=== PATIENT | male | born 1960 | race Caucasian/White ===

== ENCOUNTER → 2019-12-06 | Outpatient (CLI) | payer MEDICARE ==
[~2019-12-06] MED LIST: DUEXIS 800-26.1 EACH PO; FLONASE; GABAPENTIN100 MG PO; METOPROLOL SUCC50 MG PO; NAPROSYN500 MG PO; NORCO 10-325 T1 EACH
--- NOTE | 2019-12-10 10:09 | Diagnostic Imaging Report ---
MRI of the left foot without contrast. History: Osteomyelitis. Nonhealing laceration at the hindfoot. Foot pain. Decreased range of motion. History of prior surgery. Technique: Multiplanar multisequence MRI of the left hindfoot without contrast Comparison: None Findings: Abnormal skin thickening with laceration and artifact at the inferior medial heel at the level of the posterior calcaneus as seen on sagittal image 12. No adjacent well-formed drainable fluid collection/abscess is seen. There is a moderate amount of bone marrow edema in the posterior calcaneus worrisome for osteomyelitis. Metallic artifact from prior ankle surgery obscures fine detail. No acute fracture, dislocation or evidence of avascular necrosis. Scattered degenerative change. Diffuse muscle atrophy. No ligamentous or tendon tear is seen. The visualized neurovascular bundles are intact. Impression: Abnormal skin thickening with laceration and artifact at the inferior medial heel at the level of the posterior calcaneus as seen on sagittal image 12. No adjacent well-formed drainable fluid collection/abscess is seen. There is a moderate amount of bone marrow edema in the posterior calcaneus worrisome for osteomyelitis. Signed by: Dr. Herson Kwan M.D. on 12/10/2019 10:05 AM
== END ==
LOC: MRI 14:10
PROVIDERS: ATTEND Podiatrist Foot & Ankle Surgery
DX: M86.572 Other chronic hematogenous osteomyelitis, left ankle and foot (principal)

== ENCOUNTER → 2020-03-03 | Outpatient (CLI) | payer MEDICARE ==
[2020-03-03 14:13] LABS: HEMOGLOBIN 12.9 g/dL (14.0-18.0)
[2020-03-03 14:18] LABS: INR 0.87; PROTHROMBIN TIME 12.2 seconds (11.9-14.5)
[2020-03-03 14:19] LABS: PARTIAL THROMBOPLASTIN TIME 28.6 seconds (23.8-35.5)
[2020-03-03 14:24] LABS: CREATININE, SERUM 1.31 mg/dL (0.72-1.25)
--- NOTE | 2020-03-03 15:06 | Diagnostic Imaging Report ---
EXAMINATION: CHEST XRAY LINE PLACEMENT INDICATION: Line placement COMPARISON: None FINDINGS: LINES/TUBES:Left PICC line terminates at the superior cavoatrial junction. LUNGS:The lungs are well-inflated. No focal consolidation or pulmonary edema. PLEURA:No pleural effusion or pneumothorax. MEDIASTINUM:The cardiomediastinal silhouette appears normal in size and shape. BONES/SOFT TISSUES:No acute osseous injury. ABDOMEN:No free air under the diaphragm. IMPRESSION: Left PICC line terminates at the superior cavoatrial junction. No focal pneumonia or pulmonary edema. Signed by: Hazel Vasquez MD on 03/03/2020 3:03 PM
== END ==
LOC: DX 13:33
PROVIDERS: ATTEND Podiatrist Foot & Ankle Surgery
DX: M86.8X7 Other osteomyelitis, ankle and foot (principal); A49.02 Methicillin resistant Staphylococcus aureus infection, unspecified site
CPT/HCPCS: 36415; 36569; 71045; 82565; 84520; 85014; 85049; 85610; 85730

== ENCOUNTER → 2020-03-16 | Outpatient (CLI) | payer MEDICARE ==
--- NOTE | 2020-03-16 15:58 | Diagnostic Imaging Report ---
TECHNIQUE: Frontal view of the chest. INDICATION: ^[id number] ^[id number] ^CHECK PICC PLACEMENT COMPARISON: None DISCUSSION: Limited evaluation due to portable technique. Lines and hardware: Right PICC is noted with tip projecting at the cavoatrial junction. Heart and mediastinum: Stable. Lungs and pleura: No focal airspace consolidation. No pleural effusion. No pneumothorax. Soft tissues and bones: No acute abnormality. IMPRESSION: Right PICC noted with tip projecting at the cavoatrial junction. Negative for pneumothorax. Signed by: César Vargas MD on 03/16/2020 3:55 PM
--- NOTE | 2020-03-17 13:13 | NUR ---
attempted to Followed up with pt via telephone. The call went to voice mail, I left a generic message for the pt.
== END ==
LOC: DX 13:16
PROVIDERS: ATTEND Podiatrist Foot & Ankle Surgery
DX: M86.8X7 Other osteomyelitis, ankle and foot (principal)
CPT/HCPCS: 36569; 71045

== ENCOUNTER → 2020-04-07 | Outpatient (CLI) | payer MEDICARE ==
[2020-04-07 12:41] LABS: HEMOGLOBIN 13.4 g/dL (14.0-18.0)
[2020-04-07 12:45] LABS: INR 0.96; PARTIAL THROMBOPLASTIN TIME 29.3 seconds (23.8-35.5); PROTHROMBIN TIME 13.3 seconds (11.9-14.5)
[2020-04-07 12:51] LABS: CREATININE, SERUM 1.29 mg/dL (0.72-1.25)
--- NOTE | 2020-04-07 14:01 | Diagnostic Imaging Report ---
EXAMINATION: CHEST XRAY LINE PLACEMENT INDICATION: Line placement COMPARISON: Chest radiograph 03/03/2020 FINDINGS: LINES/TUBES:Left PICC line terminates near the superior cavoatrial junction. LUNGS:The lungs are well-inflated. No focal consolidation or pulmonary edema. PLEURA:No pleural effusion or pneumothorax. MEDIASTINUM:The cardiomediastinal silhouette appears normal in size and shape. BONES/SOFT TISSUES:No acute osseous injury. ABDOMEN:No free air under the diaphragm. IMPRESSION: Left PICC line terminates near the superior cavoatrial junction. Signed by: Hazel Vasquez MD on 04/07/2020 1:58 PM
== END ==
LOC: DX 12:12
PROVIDERS: ATTEND Podiatrist Foot & Ankle Surgery
DX: M86.9 Osteomyelitis, unspecified (principal)
CPT/HCPCS: 36415; 36569; 71045; 82565; 84520; 85014; 85049; 85610; 85730

== ENCOUNTER 2020-04-21 16:52 | Inpatient (IN) | payer MEDICARE, OTHER ==
[~2020-04-21] VITALS: Ht 172.7 cm; Wt 67.1 kg
[2020-04-21 18:00] LABS: BILIRUBIN,URINE SMALL (NEGATIVE); CLARITY,URINE SL CLOUDY (CLEAR); COLOR,URINE AMBER (YELLOW); KETONES,URINE NEGATIVE (NEGATIVE); LEUKOCYTE ESTERASE ,URINE NEGATIVE (NEGATIVE); NITRITE,URINE NEGATIVE (NEGATIVE); PROTEIN,URINE DIPSTICK 1+ (NEGATIVE); URINE UROBILINOGEN 0.2 mg/dL (0.2 - 1)
[2020-04-21 18:01] LABS: BASOPHILS # (AUTO) 0.1 (0.0-0.1); BASOPHILS % 0.7 % (0.0-1.0); EOSINOPHILS # (AUTO) 0.5 (0.0-0.4); EOSINOPHILS % 3.5 % (0.0-6.0); HEMATOCRIT 33.2 % (38.2-49.6); HEMOGLOBIN 11.6 g/dL (14.0-18.0); LYMPHOCYTES % 7.7 % (18.0-39.1); MEAN CORPUSCULAR HEMOGLOBIN 28.7 pg (28-32); MEAN CORPUSCULAR HGB CONC 34.9 g/dL (31-35); MEAN CORPUSCULAR VOLUME 82.2 fL (81-99); MONOCYTES # (AUTO) 1.4 (0.2-0.8); MONOCYTES % 10.6 % (4.4-11.3); NEUTROPHILS # (AUTO) 10.3 (2.1-6.9); NEUTROPHILS % 76.8 % (38.7-80.0); PLATELET COUNT 326 x10e3/uL (140-360); RED BLOOD COUNT 4.04 x10e6/uL (4.3-5.7); RED CELL DISTRIBUTION WIDTH 13.1 % (11.7-14.4)
[2020-04-21 18:10] LABS: AMORPHOUS SEDIMENT,URINE MODERATE (FEW); BACTERIA,URINE MODERATE /HPF; EPITHELIAL CELLS,URINE FEW /LPF
[2020-04-21 18:13] LABS: ALBUMIN 2.7 g/dL (3.5-5.0); ALBUMIN/GLOBULIN RATIO 0.6 (0.8-2.0); ANION GAP 17.8 mmol/L (8-16); CALCIUM 9.4 mg/dL (8.4-10.2); CREATININE, SERUM 2.79 mg/dL (0.72-1.25); POTASSIUM 3.8 mmol/L (3.5-5.1)
[2020-04-21] MEDS ORDERED: SODIUM CHLORIDE 0.9% 1000ML 1,000 ML IV STA (18:18)
[2020-04-21] MEDS ORDERED: PIPER-TAZ 3.375 GM 50 ML IV STA (18:18)
[2020-04-21] MEDS ORDERED: VANCOMYCIN HCL5 GM (18:38)
[2020-04-21] MEDS ORDERED: ACETAMINOPHEN-1 EAC4 PO (18:38)
[2020-04-21] MEDS ORDERED: DIAZEPAM10 MG PO (18:38)
[2020-04-21 23:30] VITALS: BP 148/99
[2020-04-22] VITALS (9 sets, daily range): BP systolic 114–147; BP diastolic 77–88
[2020-04-22] MEDS ORDERED: MORPHINE SULFATE INJ 4 MG/ML INJ 1ML IV PRN
[2020-04-22] MEDS: SODIUM CHLORIDE 0.9% 1000ML 1,000 ML IV SCH ×5 (00:19→22:20)
[2020-04-22] MEDS ORDERED: MORPHINE SULFATE INJ 4 MG/ML INJ 1ML ONE (03:13)
[2020-04-22] MEDS: MORPHINE SULFATE INJ 4 MG/ML INJ 1ML IV PRN (03:15)
[2020-04-22 06:22] LABS: CREATINE KINASE 50 IU/L (30-200)
[2020-04-22] MEDS ORDERED: ONDANSETRON HCL INJ 2MG/ML 2ML 2 MG/ML VIAL IV PRN (07:00)
[2020-04-22] MEDS ORDERED: DOCUSATE SODIUM 100 MG CAP PO PRN (07:00)
[2020-04-22] MEDS ORDERED: ZOLPIDEM TARTRATE 5 MG TAB PO PRN (07:00)
[2020-04-22] MEDS: METOPROLOL SUCCINATE 50 MG TAB XL PO SCH ×2 (08:58→17:27)
[2020-04-22] MEDS ORDERED: NON-FORMULARY MEDICATION (Acetaminophen With Codeine (Acetaminophen-Cod #4 Tablet) 1 TAB) PO SCH (09:00)
[2020-04-22] MEDS ORDERED: SODIUM CHLORIDE 0.9% 1000ML 1,000 ML ONE (09:07)
[2020-04-22] MEDS ORDERED: CEFEPIME HCL 1 GM VIAL IV SCH (13:00)
[2020-04-22] MEDS ORDERED: CEFEPIME 1GM/NS 0.9% 50 ML 50 ML IV SCH (13:00)
[2020-04-22] MEDS ORDERED: CLINDAMYCIN 300MG 50 ML IV SCH (14:00)
[2020-04-22] MEDS: ACETAMINOPHEN 325 MG TAB PO PRN (15:35)
[2020-04-22] MEDS: ACETAMINOPHEN/CODEINE 300MG - 30MG TAB PO SCH (17:10)
[2020-04-22] MEDS: DIAZEPAM 5 MG TAB PO SCH (20:09)
[2020-04-22] MEDS ORDERED: DIAZEPAM PO SCH (21:00)
[2020-04-23] VITALS (7 sets, daily range): BP systolic 109–129; BP diastolic 68–80
[2020-04-23] MEDS: SODIUM CHLORIDE 0.9% 1000ML 1,000 ML IV SCH ×4 (03:45→21:34)
[2020-04-23] MEDS: MORPHINE SULFATE INJ 4 MG/ML INJ 1ML IV PRN (04:09)
[2020-04-23 08:35] LABS: BASOPHILS # (AUTO) 0.2 (0.0-0.1); BASOPHILS % 1.2 % (0.0-1.0); EOSINOPHILS # (AUTO) 1.3 (0.0-0.4); EOSINOPHILS % 10.9 % (0.0-6.0); HEMATOCRIT 32.7 % (38.2-49.6); LYMPHOCYTES # (AUTO) 1.5 (1.0-3.2); LYMPHOCYTES % 11.9 % (18.0-39.1); MEAN CORPUSCULAR HEMOGLOBIN 28.2 pg (28-32); MEAN CORPUSCULAR HGB CONC 33.6 g/dL (31-35); MEAN CORPUSCULAR VOLUME 83.8 fL (81-99); MONOCYTES # (AUTO) 1.2 (0.2-0.8); MONOCYTES % 9.7 % (4.4-11.3); NEUTROPHILS # (AUTO) 8.1 (2.1-6.9); NEUTROPHILS % 65.5 % (38.7-80.0); PLATELET COUNT 364 x10e3/uL (140-360); RED CELL DISTRIBUTION WIDTH 13.3 % (11.7-14.4)
[2020-04-23] MEDS: ACETAMINOPHEN/CODEINE 300MG - 30MG TAB PO SCH ×2 (08:57→17:00)
[2020-04-23] MEDS: METOPROLOL SUCCINATE 50 MG TAB XL PO SCH ×2 (08:57→17:00)
[2020-04-23 09:07] LABS: ANION GAP 13.6 mmol/L (8-16); CALCIUM 8.6 mg/dL (8.4-10.2); CREATININE, SERUM 2.61 mg/dL (0.72-1.25); POTASSIUM 3.6 mmol/L (3.5-5.1)
[2020-04-23] MEDS: DIAZEPAM 5 MG TAB PO SCH (21:34)
[2020-04-24] VITALS (8 sets, daily range): BP systolic 106–149; BP diastolic 70–85
[2020-04-24] MEDS: ACETAMINOPHEN 325 MG TAB PO PRN (03:44)
[2020-04-24] MEDS: SODIUM CHLORIDE 0.9% 1000ML 1,000 ML IV SCH (05:00)
[2020-04-24] MEDS: ACETAMINOPHEN/CODEINE 300MG - 30MG TAB PO SCH ×2 (09:00→17:00)
[2020-04-24] MEDS: METOPROLOL SUCCINATE 50 MG TAB XL PO SCH ×2 (09:00→17:17)
[2020-04-24] MEDS ORDERED: SODIUM BICARBONATE 8.4% 50 ML in SODIUM CHLORIDE 0.45% 1,000 ML IV ONE (09:15)
[2020-04-24] MEDS ORDERED: ONDANSETRON HCL 4 MG ORAL DISINTEGRATING TAB PO PRN (11:00)
[2020-04-24] MEDS ORDERED: CEFTRIAXONE SOD 1 GM/NS 50 ML 50 ML IV SCH (11:45)
[2020-04-24] MEDS: COLLAGENASE 5 GM TUBE TOP SCH (12:38)
[2020-04-24] MEDS ORDERED: CEFEPIME HCL 1 GM VIAL IV SCH (18:15)
[2020-04-24] MEDS: DIAZEPAM 5 MG TAB PO SCH ×2 (20:32→22:36)
[2020-04-24] MEDS: CEFEPIME 1GM/NS 0.9% 50 ML 50 ML IV SCH (20:32)
[2020-04-25] VITALS (7 sets, daily range): BP systolic 108–144; BP diastolic 66–88
[2020-04-25] MEDS: MORPHINE SULFATE INJ 4 MG/ML INJ 1ML IV PRN (02:09)
[2020-04-25] MEDS ORDERED: SODIUM BICARBONATE 8.4% 50 ML VIAL IV STA (05:15)
[2020-04-25] MEDS ORDERED: SODIUM BICARBONATE 8.4% INJ 50 ML SYR IV STA (05:24)
[2020-04-25] MEDS: SODIUM CHLORIDE 0.45% 1,000 ML IV SCH ×2 (05:43→21:15)
[2020-04-25 06:38] LABS: BASOPHILS # (AUTO) 0.1 (0.0-0.1); BASOPHILS % 0.9 % (0.0-1.0); EOSINOPHILS # (AUTO) 1.1 (0.0-0.4); EOSINOPHILS % 9.5 % (0.0-6.0); HEMATOCRIT 31.3 % (38.2-49.6); HEMOGLOBIN 10.4 g/dL (14.0-18.0); LYMPHOCYTES # (AUTO) 1.3 (1.0-3.2); LYMPHOCYTES % 10.9 % (18.0-39.1); MEAN CORPUSCULAR HEMOGLOBIN 27.7 pg (28-32); MEAN CORPUSCULAR HGB CONC 33.2 g/dL (31-35); MEAN CORPUSCULAR VOLUME 83.2 fL (81-99); MONOCYTES # (AUTO) 0.9 (0.2-0.8); MONOCYTES % 7.8 % (4.4-11.3); NEUTROPHILS # (AUTO) 8.2 (2.1-6.9); NEUTROPHILS % 70.2 % (38.7-80.0); PLATELET COUNT 382 x10e3/uL (140-360); RED BLOOD COUNT 3.76 x10e6/uL (4.3-5.7); RED CELL DISTRIBUTION WIDTH 13.8 % (11.7-14.4)
[2020-04-25 07:01] LABS: ANION GAP 14.9 mmol/L (8-16); CALCIUM 8.5 mg/dL (8.4-10.2); CREATININE, SERUM 2.26 mg/dL (0.72-1.25); POTASSIUM 3.9 mmol/L (3.5-5.1)
[2020-04-25] MEDS: METOPROLOL SUCCINATE 50 MG TAB XL PO SCH ×2 (09:13→17:11)
[2020-04-25] MEDS: ACETAMINOPHEN/CODEINE 300MG - 30MG TAB PO SCH ×2 (09:15→17:00)
[2020-04-25] MEDS: COLLAGENASE 5 GM TUBE TOP SCH (09:15)
[2020-04-25] MEDS: CEFEPIME 1GM/NS 0.9% 50 ML 50 ML IV SCH (18:05)
[2020-04-25] MEDS ORDERED: SODIUM CHLORIDE 0.45% 1,000 ML ONE (20:37)
[2020-04-25] MEDS ORDERED: SODIUM BICARBONATE 8.4% SYRING 50 ML ONE (20:37)
[2020-04-25] MEDS: DIAZEPAM 5 MG TAB PO SCH (21:00)
[2020-04-25] MEDS: LACTULOSE SYRUP 20 GM/30 ML UDC PO PRN (21:15)
[2020-04-26] VITALS (8 sets, daily range): BP systolic 116–139; BP diastolic 70–98
[2020-04-26] MEDS: METOPROLOL SUCCINATE 50 MG TAB XL PO SCH ×2 (09:04→17:05)
[2020-04-26] MEDS: ACETAMINOPHEN/CODEINE 300MG - 30MG TAB PO SCH ×2 (09:04→17:06)
[2020-04-26] MEDS: MORPHINE SULFATE INJ 4 MG/ML INJ 1ML IV PRN ×2 (11:28→19:22)
[2020-04-26] MEDS: COLLAGENASE 5 GM TUBE TOP SCH (11:28)
[2020-04-26 12:56] LABS: BASOPHILS # (AUTO) 0.1 (0.0-0.1); BASOPHILS % 0.7 % (0.0-1.0); EOSINOPHILS # (AUTO) 0.7 (0.0-0.4); EOSINOPHILS % 7.7 % (0.0-6.0); HEMATOCRIT 29.2 % (38.2-49.6); HEMOGLOBIN 9.6 g/dL (14.0-18.0); LYMPHOCYTES # (AUTO) 1.2 (1.0-3.2); LYMPHOCYTES % 12.5 % (18.0-39.1); MEAN CORPUSCULAR HEMOGLOBIN 27.4 pg (28-32); MEAN CORPUSCULAR HGB CONC 32.9 g/dL (31-35); MEAN CORPUSCULAR VOLUME 83.2 fL (81-99); MONOCYTES # (AUTO) 0.8 (0.2-0.8); MONOCYTES % 8.9 % (4.4-11.3); NEUTROPHILS # (AUTO) 6.5 (2.1-6.9); NEUTROPHILS % 69.3 % (38.7-80.0); PLATELET COUNT 343 x10e3/uL (140-360); RED BLOOD COUNT 3.51 x10e6/uL (4.3-5.7); RED CELL DISTRIBUTION WIDTH 13.6 % (11.7-14.4)
[2020-04-26 13:11] LABS: ANION GAP 13.6 mmol/L (8-16); CALCIUM 8.3 mg/dL (8.4-10.2); CREATININE, SERUM 2.07 mg/dL (0.72-1.25); POTASSIUM 3.6 mmol/L (3.5-5.1)
[2020-04-26] MEDS: SODIUM BICARBONATE 8.4% 50 ML in SODIUM CHLORIDE 0.45% 1,000 ML IV SCH (16:00)
[2020-04-26] MEDS: CEFEPIME 1GM/NS 0.9% 50 ML 50 ML IV SCH (18:11)
[2020-04-26] MEDS: DIAZEPAM 5 MG TAB PO SCH (21:09)
[2020-04-26] MEDS: GABAPENTIN 100 MG CAP PO SCH (21:09)
[2020-04-26] MEDS: LACTULOSE SYRUP 20 GM/30 ML UDC PO PRN (21:15)
[2020-04-27 02:27] VITALS: BP 118/75
[2020-04-27] MEDS: GABAPENTIN 100 MG CAP PO SCH ×2 (05:35→13:06)
[2020-04-27 05:52] VITALS: BP 137/86
[2020-04-27 07:05] LABS: BASOPHILS # (AUTO) 0.1 (0.0-0.1); BASOPHILS % 0.9 % (0.0-1.0); EOSINOPHILS # (AUTO) 0.9 (0.0-0.4); HEMATOCRIT 31.9 % (38.2-49.6); HEMOGLOBIN 10.3 g/dL (14.0-18.0); LYMPHOCYTES # (AUTO) 1.2 (1.0-3.2); LYMPHOCYTES % 12.2 % (18.0-39.1); MEAN CORPUSCULAR HGB CONC 32.3 g/dL (31-35); MEAN CORPUSCULAR VOLUME 83.7 fL (81-99); MONOCYTES # (AUTO) 0.7 (0.2-0.8); MONOCYTES % 7.9 % (4.4-11.3); NEUTROPHILS # (AUTO) 6.4 (2.1-6.9); NEUTROPHILS % 67.9 % (38.7-80.0); PLATELET COUNT 379 x10e3/uL (140-360); RED BLOOD COUNT 3.81 x10e6/uL (4.3-5.7); RED CELL DISTRIBUTION WIDTH 13.6 % (11.7-14.4)
[2020-04-27 07:37] LABS: ANION GAP 13.1 mmol/L (8-16); CALCIUM 8.9 mg/dL (8.4-10.2); CREATININE, SERUM 2.04 mg/dL (0.72-1.25); POTASSIUM 4.1 mmol/L (3.5-5.1)
[2020-04-27 08:00] VITALS: BP 138/87
[2020-04-27] MEDS: ACETAMINOPHEN/CODEINE 300MG - 30MG TAB PO SCH ×2 (09:17→16:36)
[2020-04-27] MEDS: METOPROLOL SUCCINATE 50 MG TAB XL PO SCH ×2 (09:17→16:36)
[2020-04-27] MEDS: COLLAGENASE 5 GM TUBE TOP SCH (11:08)
[2020-04-27 12:00] VITALS: BP 115/74
[2020-04-27] MEDS: SODIUM BICARBONATE 8.4% 50 ML in SODIUM CHLORIDE 0.45% 1,000 ML IV SCH (13:06)
[2020-04-27 16:00] VITALS: BP 135/86
[2020-04-27] MEDS: CEFEPIME 1GM/NS 0.9% 50 ML 50 ML IV SCH (17:15)
== END 2020-04-27 19:23 | DRG 315 ==
LOC: ER 17:42 → ERHOLD 22:54 → MED/SURG3 22:58
PROVIDERS: ADMIT Internal Medicine; ATTEND Internal Medicine
DX: T80.211A Bloodstream infection due to central venous catheter, initial encounter (principal); M86.672 Other chronic osteomyelitis, left ankle and foot; N17.9 Acute kidney failure, unspecified; N39.0 Urinary tract infection, site not specified; E87.2 Acidosis; R64 Cachexia; L97.424 Non-pressure chronic ulcer of left heel and midfoot with necrosis of bone; E86.0 Dehydration; Z68.22 Body mass index [BMI] 22.0-22.9, adult; B96.5 Pseudomonas (aeruginosa) (mallei) (pseudomallei) as the cause of diseases classified elsewhere; F79 Unspecified intellectual disabilities; I12.9 Hypertensive chronic kidney disease with stage 1 through stage 4 chronic kidney disease, or unspecified chronic kidney disease; N18.9 Chronic kidney disease, unspecified; Z20.828 Contact with and (suspected) exposure to other viral communicable diseases
CPT/HCPCS: 36415; 70450; 71046; 80048; 80053; 80202; 81001; 82140; 82550; 82553; 83605; 83880; 84484; 85025; 85651; 86140; 87040; 87071; 87086; 87186; 87205; 93005; 99251; 99284; J0692; J0696; J2270; J2543; J7030; Q0162; U0002

== ENCOUNTER 2020-06-02 11:47 | Emergency (ER) | payer MEDICARE, OTHER ==
[~2020-06-02] VITALS: Ht 172.7 cm; Wt 67.1 kg
[~2020-06-02 11:47] MED LIST changes: +ACETAMINOPHEN-1 EAC4 PO; +DIAZEPAM10 MG PO; +VANCOMYCIN HCL5 GM
--- OUTSIDE RECORDS SUMMARY | 2020-06-02 12:31 | XMS REPORT | Continuity of Care Document ---
Author Author [facility] t Organization [facility] Address [address] [place] [address] Phone Unavailable Care Team Providers Care Software Testing Specialist Name Role Phone DO JATIN CALVILLO PCP FERCHO BANEGAS Attphys Unavailable Leida ARELLANO Attphys Unavailable LESTER CAREY D.O. Attphys Unavailable MELANIE HERNANDEZ M.D. Attphys Unavailable JAMES OLIVEIRA M.D. Attphys Unavailable JESSY MONTALVO M.D. Attphys Unavailable JOEL FERRARI NP Attphys Unavailable FERCHO BANEGAS Admphys Unavailable Payers Payer Name Policy Type Policy Number Effective Date Expiration Date Tito Manriquez [id number] 2016 00:00:00 [facility] Problems Condition Name Condition Details Condition Category Status Onset Date Resolution Date Last Treatment Date Treating Clinician Comments Source Plantar fasciitis Plantar fasciitis Problem HL7.CCDAR2 Active [facility] Neck pain, acute Neck pain, acute Problem HL7.CCDAR2 Active [facility] Unintentional weight loss Unintentional weight loss Problem HL7.CCDAR [address] [facility] Insomnia Insomnia Problem HL7.CCDAR2 Active [facility] Limitation due to disability Limitation due to disability Proble m HL7.CCDAR2 Active [facility] Chronic gastroesophageal reflux disease Chronic gastroesopha geal reflux disease Problem HL7.CCDAR2 [facility] Erectile dysfunction Erectile dysfunction Problem HL7.CCDAR2 Active [facility] Malaise and fatigue Malaise and fatigue Problem HL7.CCDAR2 Active [facility] Allergic rhinitis Allergic rhinitis Problem HL7.CCDAR2 Active [facility] Eye pain, bilateral Eye pain, bilateral Problem HL7.CCDAR2 Active [facility] Low back pain Low back pain Problem HL7.CCDAR2 Active [facility] Essential (primary) hypertension Essential (primary) hyperte nsion Problem HL7.CCDAR2 Active [facility] Hyperlipidemia Hyperlipidemia Problem HL7.CCDAR2 Active [facility] Arthritis Arthritis Problem HL7.CCDAR2 Active [facility] Chronic pain syndrome Chronic pain syndrome Problem HL7.CCDAR2 Active [facility] ED (erectile dysfunction) of non-organic origin ED (er ectile dysfunction) of non-organic origin Problem HL7.CCDAR2 Active [facility] Chronic constipation Chronic constipation Problem HL7.CCDAR2 Active [facility] Impacted cerumen of left ear Impacted cerumen of left ear Proble m HL7.CCDAR2 Active [facility] Low testosterone Low testosterone Problem HL7.CCDAR2 Active [facility] Pain, foot, chronic Pain, foot, chronic Problem HL7.CCDAR2 Active [facility] Paresthesia of left foot Paresthesia of left foot Problem HL7.CCDAR2 A ctive [facility] Colon cancer screening Colon cancer screening Problem HL7.CCDAR2 Active [facility] Acute kidney injury Problem Active [facility] Urinary tract infection Problem Active [facility] Chronic osteomyelitis of left foot Problem Active [facility] Allergies, Adverse Reactions, Alerts Allergy Name Allergy Type Status Severity Reaction(s) Onset Date Inacti ve Date Treating Clinician Comments Source No Known Allergies DA Active U 2017-11-06 00:00:00 [facility] Social History Social Habit Start Date Stop Date Quantity Comments Source Sex Assigned At 1960 00:00:00 1960 00:00:00 Male [facility] Smoking Status Start Date Stop Date Source Never smoker [facility] Medications Ordered Medication Name Filled Medication Name Start Date Stop Da te Current Medication? Ordering Clinician Indication Dosage Frequency Signature (SIG) Comments Components Source Lidocaine 5 % External Patch Lidocaine 5 % External Patch 2017-11-15 3 00:00:00 Yes DADA PINON D.O. A PPLY 1 PATCH TO THE AFFECTED AREA AND LEAVE IN PLACE FOR 12 HOURS, THEN REMOVE AND LEAVE OFF FOR 12 HOURS. [facility] Meloxicam 15 MG Oral Tablet Meloxicam 15 MG Oral Tablet 2017-12-06 00:00:00 Yes DADA PINON D.O. TAKE 1 TABLET DAILY A S NEEDED. [facility] TraZODone HCl - 100 MG Oral Tablet TraZODone HCl - 100 MG Or al Tablet 2017-10-16 00:00:00 Yes MELANIE HERNANDEZ M.D. 1 TAKE 1 TABLET AT BEDTIME. [facility] ClonazePAM 0.5 MG Oral Tablet ClonazePAM 0.5 MG Oral Tablet 2017 00:00:00 Yes MELANIE HERNANDEZ M.D. Q0.5D TAKE 1 TABLET TWIC E DAILY NEEDED. [facility] Simvastatin 40 MG Oral Tablet Simvastatin 40 MG Oral Tablet 2016 00:00:00 Yes MELANIE HERNANDEZ M.D. QD TAKE 1 TABLET RICH Y DIRECTED. [facility] Fluticasone Propionate 50 MCG/ACT Nasal Suspension Flu ticasone Propionate 50 MCG/ACT Nasal Suspension 2016-10-11 00:00:00 Yes JAMES Maradiaga M.D. Q0.5D USE 2 SPRAYS IN EACH NOSTRIL TWICE DAILY. [facility] Suprep Bowel Prep Kit 17.5-3.13-1.6 GM/177ML Oral Solu tion Suprep Bowel Prep Kit 17.5-3.13-1.6 GM/177ML Oral Solution 2016-06-28 00:00:00 Yes JESSY MONTALVO M.D. DILUTE CONTENTS AND USE DIRECTED FOR BOWEL PREP [facility] Nortriptyline HCl - 10 MG Oral Capsule Nortriptyline HCl - 1 0 MG Oral Capsule 2016-06-21 00:00:00 Yes DADA PINON D.OEleanor take one at bedtime [facility] Metoprolol Succinate ER 100 MG Oral Tablet Extended Re lease 24 Hour Metoprolol Succinate ER 100 MG Oral Tablet Extended Release 24 Hour 2015-09-08 00:00:00 Yes DADA Andrea.OEleanor TAKE ONE TABLET BY MO UT TWICE DAILY [facility] Omeprazole 20 MG Oral Capsule Delayed Release Omeprazo le 20 MG Oral Capsule Delayed Release 2015-09-08 00:00:00 Yes MELANIE HERNANDEZ M.D. QD TAKE 1 CAPSULE DAILY EVERY MORNING BEFORE BREAKFAST. [facility] Docusate Sodium 100 MG Oral Capsule Docusate Sodium 100 MG O ral Capsule 2015-09-08 00:00:00 Yes 1 bid [facility] Fiber Laxative 625 MG Oral Tablet Fiber Laxative 625 MG Oral Tablet 2015-09-08 00:00:00 Yes MELANIE HERNANDEZ M.D. BID [facility] Hydrocodone-Acetaminophen 5-325 MG Oral Tablet Hydroco done-Acetaminophen 5-325 MG Oral Tablet Yes ONE TABLET EVERY 12 DEVIKA RS FOR PAIN [facility] Acetaminophen With Codeine (Acetaminophen-Cod #4 Table t) 1 Each TABLET Acetaminophen With Codeine (Acetaminophen-Cod #4 Tablet) 1 Each TABLET Yes 1 Twice A Day [facility] Diazepam Diazepam Yes 1 Bedtime [facility] Flonase Flonase Yes [facility] Ibuprofen/Famotidine (Duexis 800-26.6 Mg Tablet) 1 Eac h TABLET Ibuprofen/Famotidine (Duexis 800-26.6 Mg Tablet) 1 Each TABLET Y es 1 Twice A Day [facility] Metoprolol Succinate Metoprolol Succinate Yes 100 Twice A Day [facility] Vancomycin Hcl Vancomycin Hcl Yes [facility] Naproxen (Naprosyn) 500 Mg TABLET Naproxen (Naprosyn) 500 Mg TAB LET 2020-04-22 00:00:00 No 500 As Needed [facility] Gabapentin Gabapentin 2020-04-21 00:00:00 No 100 Twi ce A Day [facility] Hydrocodone Bit/Acetaminophen ([place] 10-325 Tablet) 1 Each TABLET Hydrocodone Bit/Acetaminophen ([place] 10-325 Tablet) 1 Each TABLET 2020-04-21 00:00:00 No [facility] Vital Signs Vital Name Observation Time Observation Value Comments Source Body Temperature 2020-04-27 16:00:00 97.5 [degF] [facility] Weight 2020-04-21 23:30:00 148 [lb_av] [facility] BMI (Body Mass Index) 2020-04-21 23:30:00 22.5 kg/m2 [facility] Body Temperature 2020-04-21 20:54:00 97.7 [degF] [facility] Weight 2020-04-21 17:16:00 195 [lb_av] [facility] BMI (Body Mass Index) 2020-04-21 17:16:00 27.2 kg/m2 [facility] BP Systolic 2017-12-06 14:14:00 126 mm[Hg] Location: MATI; Positi on: Sitting [facility] BP Diastolic 2017-12-06 14:14:00 77 mm[Hg] Location: MATI; Positi on: Sitting [facility] Height 2017-12-06 14:14:00 72 [in_us] [facility] Weight 2017-12-06 14:14:00 201 [lb_av] [facility] Body Mass Index Calculated 2017-12-06 14:14:00 27.26 kg/m2 [facility] Temperature 2017-12-06 14:14:00 97.5 [degF] Method: Temporal [facility] Heart Rate 2017-12-06 14:14:00 81 /min Location: L Radial; [facility] Respiration Rate 2017-12-06 14:14:00 16 /min Quality: Normal [facility] BP Systolic 2017-10-16 15:12:00 122 mm[Hg] Location: RENATE Positi on: Sitting [facility] BP Diastolic 2017-10-16 15:12:00 71 mm[Hg] Location: RENATE Positi on: Sitting [facility] Height 2017-10-16 15:12:00 72 [in_us] [facility] Weight 2017-10-16 15:12:00 193 [lb_av] [facility] Body Mass Index Calculated 2017-10-16 15:12:00 26.18 kg/m2 [facility] Temperature 2017-10-16 15:12:00 97.6 [degF] Method: Temporal [facility] Heart Rate 2017-10-16 15:12:00 96 /min [facility] Respiration Rate 2017-10-16 15:12:00 17 /min [facility] Procedures Procedure Date / Time Performed Performing Clinician Sour e MRI non-joint region of extremity lower wo contrast 2020-04-22 0 0:00:00 [facility] Computed tomography of brain without radiopaque contrast 2020-04 00:00:00 [facility] X-ray of chest, two views 2020-04-21 00:00:[address] [facility] MRI non-joint region of extremity lower wo contrast 2019-12-06 0 0:00:00 [facility] [[facility]] CBC (INCLUDES DIFF/PLT) 2017-11-09 00:00:00 [facility] [[facility]] CMP W/EGFR 2017-11-09 00:00:00 [facility] [[facility]] LIPID PANEL 2017-11-09 00:00:00 [facility] [[facility]] CMP W/EGFR 2017-10-16 00:00:00 [facility] [[facility]] LIPID PANEL 2017-10-16 00:00:00 [facility] [[facility]] CBC (INCLUDES DIFF/PLT) 2017-10-16 00:00:00 [facility] Plan of Care Planned Activity Planned Date Details Comments Source Instructions Kidney Failure [facility] Instructions Urinary Tract Infection - Men [facility] Encounters Start Date/Time End Date/Time Encounter Type Ad[facility] Encounter ID Source 2020-04-21 22:54:00 2020-04-27 19:23:00 Discharged Inpatient 1 FERCHO BANEGAS [facility] [id number] [facility] 2020-04-07 12:12:00 2020-04-07 12:12:00 Registered Clinic [address] [facility] [id number] [facility] 2020-03-16 13:16:00 2020-03-16 13:16:00 Registered Clinic [address] [facility] [id number] [facility] 2020-03-03 13:33:00 2020-03-03 13:33:00 Registered Clinic [address] [facility] [id number] [facility] 2019-12-06 14:10:00 2019-12-06 14:10:00 Registered Clinic [address] [facility] [id number] [facility] 2017-12-06 13:45:00 2017-12-06 13:45:00 Appointment; LESTER CAREY D.O. YEH, SHAO-CHUN, D.O. [facility] [id number] [facility] 2017-11-09 12:00:00 2017-11-09 12:00:00 Appointment; YANG HERNANDEZ M.D. WILLISTON, HUBERT, M.D. [facility] [id number] [facility] 2017-10-16 15:30:00 2017-10-16 15:30:00 Appointment; YANG HERNANDEZ M.D. WILLISTON, HUBERT, M.D. [facility] [id number] [facility] 2017-01-02 09:45:00 2017-01-02 09:45:00 Appointment; YANG HERNANDEZ M.D. WILLISTON, HUBERT, M.D. [facility] [id number] [facility] 2016-10-11 14:45:00 2016-10-11 14:45:00 Appointment; CRISTY OLIVEIRA M.D. PERKISON, WILLIAM, M.D. [facility] UTP [id number] [facility] 2016-07-22 09:30:00 2016-07-22 09:30:00 Appointment; YANG HERNANDEZ M.D. WILLISTON, HUBERT, M.D. [facility] UTP [id number] [facility] 2016-07-22 09:15:00 2016-07-22 09:15:00 Appointment; YANG HERNANDEZ M.D. WILLISTON, HUBERT, M.D. [facility] UTP [id number] [facility] 2016-07-15 11:00:00 2016-07-15 11:00:00 Appointment; JESSY MONTALVO M.D. CATALANO, MARC, M.D. [facility]TP [id number] [facility] 2016-06-28 15:00:00 2016-06-28 15:00:00 Appointment; JESSY MONTALVO M.D. CATALANO, MARC, M.D. [facility]TP [id number] [facility] 2016-06-21 11:30:00 2016-06-21 11:30:00 Appointment; YANG HERNANDEZ M.D. WILLISTON, HUBERT, M.D. [facility]TP [id number] [facility] 2015-12-28 12:30:00 2015-12-28 12:30:00 Appointment; JOEL BARBER NP TEJADA-FOSTER, NORMA, SOLEDAD [facility] UTP [id number] [facility] 2015-09-08 12:30:00 2015-09-08 12:30:00 Appointment; JOEL BARBER NP TEJADA-FOSTER, NORMA, GROUNDS SUPERVISOR UTP UTP [id number] [facility] Results Test Description Test Time Test Comments Results Result Comments Source Blood leukocytes automated count (number/volume) 2020-04-27 06:11:00 Test Item White Blood Count (test code = 6690-2) 9.40 4.8-10.8 [facility] automated count (number/volume)2020-04-27 06:11:00* Test Item Value Reference Range Interpretation Comments Red Blood Count (test code = 789-8) 3.81 4.3-5.7 [facility] hemoglobin measurement (moles/volume)2020-04-27 06:11:00* Test Item Value Reference Range Interpretation Comments Hemoglobin (test code = 62946-5) 10.3 14.0-18.0 [facility]lands[facility] blood hematocrit (volume fraction)2020-04-27 06:11:00* Test Item Value Reference Range Interpretation Comments Hematocrit (test code = 4544-3) 31.9 38.2-49.6 [facility] erythrocyte mean corpuscular [id number] 06:11:00* Test Item Value Reference Range Interpretation Comments Mean Corpuscular Volume (test code = 787-2) 83.7 81-99 [facility] erythrocyte mean corpuscular hemoglobin (mass per erythrocyte)2020-04-27 06:11:00* Test Item Value Reference Range Interpretation Comments Mean Corpuscular Hemoglobin (test code = 785-6) 27.0 28-32 [facility]lands[facility] erythrocyte mean corpuscular hemoglobin concentration measurement (mass/volume)2020-04-27 06:11:00* Test Item Value Reference Range Interpretation Comments Mean Corpuscular Hemoglobin Concent (test code = 786-4) 32.3 31-35 [facility]landsRDW [id number]-[id number] 06:11:00* Test Item Value Reference Range Interpretation Comments Red Cell Distribution Width (test code = 35955-7) 13.6 11.7 -14.4 [facility] blood platelet count (count/volume)2020-04-27 06:11:00* Test Item Value Reference Range Interpretation Comments Platelet Count (test code = 777-3) 379 140-360 [facility]lands[facility] blood segmented neutrophil count as percentage of total sdftijthrq4642-12-28 06:11:00* Test Item Value Reference Range Interpretation Comments Neutrophils (%) (Auto) (test code = 69615-9) 67.9 38.7-80.0 [facility]lands[facility] blood lymphocyte count as percentage ot total mjovyphfqe1981-44-54 06:11:00* Test Item Value Reference Range Interpretation Comments Lymphocytes (%) (Auto) (test code = 736-9) 12.2 18.0-39.1 [facility]lands[facility] blood monocyte count as percentage of total xiagzppwaw7813-62-75 06:11:00* Test Item Value Reference Range Interpretation Comments Monocytes (%) (Auto) (test code = 5905-5) 7.9 4.4-11.3 [facility]lands[facility] blood eosinophil count as percentage of total yeaddrlcug9985-91-58 06:11:00* Test Item Value Reference Range Interpretation Comments Eosinophils (%) (Auto) (test code = 713-8) 10.0 0.0-6.0 [facility] blood basophil count as percentage of total rbxukgiykx6154-64-41 06:11:00* Test Item Value Reference Range Interpretation Comments Basophils (%) (Auto) (test code = 706-2) 0.9 0.0-1.0 [facility]landsFluoroscopic procedure less than one hour uqctggdw3565-85-96 06:11:00* Test Item Value Reference Range Interpretation Comments IM GRANULOCYTES % (test code = IM GRANULOCYTES %) 1.1 0.0- 1.0 [facility] blood neutrophil count 2020-04-27 06:11:00* Test Item Value Reference Range Interpretation Comments Neutrophils # (Auto) (test code = 751-8) 6.4 2.1-6.9 [facility] lymphocytes count (number/volume) 2020-04-27 06:11:00* Test Item Value Reference Range Interpretation Comments Lymphocytes # (Auto) (test code = 71522-3) 1.2 1.0-3.2 [facility] monocytes automated count (number/volume)2020-04-27 06:11:00* Test Item Value Reference Range Interpretation Comments Monocytes # (Auto) (test code = 742-7) 0.7 0.2-0.8 [facility]lands[facility] blood eosinophil count 2020-04-27 06:11:00* Test Item Value Reference Range Interpretation Comments Eosinophils # (Auto) (test code = 711-2) 0.9 0.0-0.4 [facility]lands[facility] blood basophil count (count/volume)2020-04-27 06:11:00* Test Item Value Reference Range Interpretation Comments Basophils # (Auto) (test code = 704-7) 0.1 0.0-0.1 [facility]landsFluoroscopic procedure less than one hour [id number] 06:11:00* Test Item Value Reference Range Interpretation Comments Absolute Immature Granulocyte (auto (layo t code = Absolute Immature Granulocyte (auto) 0.10 0-0.1 [facility] plasma sodium measurement (moles/volume)2020-04-27 06:11:00* Test Item Value Reference Range Interpretation Comments Sodium Level (test code = 2951-2) 143 136-145 [facility] or plasma potassium measurement (moles/volume)2020-04-27 06:11:00* Test Item Value Reference Range Interpretation Comments Potassium Level (test code = 2823-3) 4.1 3.5-5.1 [facility] or plasma chloride measurement (moles/volume)2020-04-27 06:11:00* Test Item Value Reference Range Interpretation Comments Chloride Level (test code = 2075-0) 108 98-107 [facility] or plasma carbon dioxide, total measurement (moles/volume)2020-04-27 06:11:00* Test Item Value Reference Range Interpretation Comments Carbon Dioxide Level (test code = 2028-9) 26 22-29 [facility]er[facility] or plasma anion plc9535-25-82 06:11:00* Test Item Value Reference Range Interpretation Comments Anion Gap (test code = 57991-0) 13.1 8-16 [facility] or plasma urea nitrogen measurement (mass/volume)2020-04-27 06:11:00* Test Item Value Reference Range Interpretation Comments Blood Urea Nitrogen (test code = 3094-0) 17 7-26 [facility] or plasma creatinine measurement (mass/volume)2020-04-27 06:11:00* Test Item Value Reference Range Interpretation Comments Creatinine (test code = 2160-0) 2.04 0.72-1.25 [facility] or plasma urea nitrogen/creatinine mass sqnui2827-58-47 06:11:00* Test Item Value Reference Range Interpretation Comments BUN/Creatinine Ratio (test code = 3097-3) 8 6-25 [facility]landsEstimated glomerular filtration rate (GFR) icfbysclbowkx0306-06-68 06:11:00* Test Item Value Reference Range Interpretation Comments Estimat Glomerular Filtration Rate (test code = 091306896) 33 >60 Ranges were taken from the National Kidney Disease Education Program and the [facility] Kidney Foundation literature.Reference ranges:60 or greater: Sssevk25-96 ( for 3 consecutive months): Chronic kidney disease 15 or less: Kidney failureTexas [facility] Hospital [facility]landsGlucose bttuzgwjtqj6203-51-97 06:11:00* Test Item Value Reference Range Interpretation Comments Glucose Level (test code = UDR7630) 107 74-118 [facility]er[facility] or plasma calcium measurement (mass/volume)2020-04-27 06:11:00* Test Item Value Reference Range Interpretation Comments Calcium Level (test code = 26830-7) 8.9 8.4-10.2 [facility]landsErythrocyte sedimentation rate by Westergren [id number] 18:54:00* Test Item Value Reference Range Interpretation Comments Erythrocyte Sedimentation Rate (test code = 4537-7) 59 0- 13 [facility] [place] [facility] Resourceserum or plasma C reactive protein measurement (mass/volume)2020-04-24 18:54:00* Test Item Value Reference Range Interpretation Comments C-Reactive Protein (test code = 1988-5) 165 0-10 Performed at: - Lab[address] [id number] Director: Jaren Guaman MD, Phone: [phone] Children's Hospital The [facility]landsBlood grunoud9863-82-07 18:54:00* Test Item Value Reference Range Interpretation Comments Blood Culture (test code = 62312370) NO GROWTH AFTER 72 HOURS [facility]landsRandom serum or plasma vancomycin measurement (mass/volume)2020-04-22 16:15:00* Test Item Value Reference Range Interpretation Comments Random Vancomycin Level (test code = 99084-2) 5.[address] [facility] CenterMRI FOOT LEFT [id number] 15:16:00 [facility] [address] [address] Patient Name: GEOFF ALVARADO MR #: [id number] : 1960 Age/Sex: 59/M Req #: [id number] Adm Physician: FERCHO BANEGAS MD Ordered by: FERCHO BANEGAS MD Report #: [id number] Location: MED/SURG3 Room/Bed: [facility] Procedure: [id number] MRI/MRI FOOT LEF T WO Exam Date: Exam Time: REPORT STATUS: Signed TECHNIQUE: Magnetic resonance i maging of the LEFT foot was performed WITHOUT injected contrast. HISTORY : Rule out osteomyelitis, heel wound x1 year COMPARISON: Left foot radiographs 04/21/2020, left foot MRI 12/06/2019 DISCUSSION: Evaluation is partially limited by susceptibility artifact from metallic hardware and lack of IV contr ast. Bone: Diffuse T2 hyperintense edema with mild T1 hypointensity thr oughout the bone marrow of the calcaneus, similar compared to prior MRI from and remains suspicious for chronic osteomyelitis. No additional connie picious bone marrow signal changes given exam limitations. Status post tibiota lar arthrodesis with associated susceptibility artifact from fixation screws. Joints: No joint malalignment or dislocation. No significant joint effu sions visualized given exam limitations. Mild degenerative arthrosis at the talonavicular and subtalar joints. Muscles/tendons: Mild edema within the visualized hindfoot musculature, may represent reactive changes or diabetic m yopathy. Visualized tendons appear grossly intact given exam limitations. Mild thickening of the plantar fascia, may represent scarring/chronic reactive c hanges given adjacent wound. Soft Tissues: Redemonstrated plantar heel wound/ulcer measuring approximately 7 mm in depth without definite extension t o the underlying bone. No associated fluid collections. IMPRESSION: 1. Redemonstrated plantar heel wound/ulcer. No associated fluid collection/a bscess. 2. Persistent diffuse bone marrow edema throughout the calcaneus is s imilar compared to prior MRI from 12/06/2019 and remains suspicious for chronic osteomyelitis. Signed by: Dr. Julio Jorgensen M.D. on 04/22/2020 4:08 P M Dictated By: JULIO JORGENSEN MD 07 Transcribed By: JOSE on 04/22/201607 COPY TO: FERCHO BANEGAS MD Bacteria identification in wound by qponams0500-81-37 13:35:00* Test Item Value Reference Range Interpretation Comments Wound Culture (test code = 6462-6) PSEUDOMONAS AERUGINOSA [facility] or plasma creatine kinase measurement (enzymatic activity/volume)2020-04-22 05:30:00* Test Item Value Reference Range Interpretation Comments Creatine Kinase (test code = 2157-6) 50 30-200 [facility] Resourceser[facility] or plasma creatine kinase MB measurement (mass/volume)2020-04-22 05:30:00* Test Item Value Reference Range Interpretation Comments Creatine Kinase MB (test code = 23578-5) 0.90 0-5.0 [facility]landsTroponin I measurement by highly sensitive enzyme evsnxeuuata8272-28-77 05:30:00* Test Item Value Reference Range Interpretation Comments Troponin I (test code = 26481-4) < 0.001 0-0.300 [facility]landsFluoroscopic procedure less than one hour qtwxdxjt6720-01-30 19:23:00* Test Item Value Reference Range Interpretation Comments Coronavirus (PCR) (test code = Coronavirus (PCR)) NOT DETECTED NOTD ETECTED SARS-CoV-2 PCRHologic Aptima SARS-CoV-2 assay is a nucleic amplification test in tended for the qualitative detection of RNA from SARS-CoV-2 from nasopharyngeal (GROUNDS SUPERVISOR) specimens. It is used under Emergency Use Authorization (EUA) by FDA.A posi tive result is indicative of the presence of SARS-CoV-2 RNA. Clinical correlatio n with patient history and other diagnostic information is necessary to determin e patient infection status.A negative (Not Detected) result does not preclude SA RS-CoV-2 infection. Clinical Correlation with patient history and other diagnost ic information should be used in patient management decisions.Invalid: Unable to generate a valid result on this specimen. Please submit a new specimen for repr at testing oc clinically indicated.Tesing performed by:[facility] Laboratory Services3 01 [facility] [id number], Kang mosher MD, PhDTexas [facility] Hospital The WoodlandsFOOT LEFT SRAGAGYP1895-53-11 19:02:00 [facility] [address] [place] [address] Patient Name: GEOFF ALVARADO MR #: [id number] : 1960 Age/Sex: 59/M Req #: [id number] Adm Physician: Ordered by: BRENDEN SHELLEY DO Report #: [id number] Location: ER Room/Bed: Procedure: [id number] DX/FOOT LEFT CO MPLETE Exam Date: 04/21/20 Exam Time: 1815 REPORT STATUS: Signed X-ray 3 views of th e foot. HISTORY: Heel pain concerning for osteomyelitis. COMPARISON: None available. FINDINGS: Bones/joints: Status post tibiotalar fusion. N o radiographic evidence of prior complication. No acute fracture or dislocatio n. Soft tissues: There is a skin defect on the plantar aspect of the hindfo ot. No osseous irregularity or lucency to suggest the presence of osteomyeliti s. IMPRESSION: No radiographic evidence of osteomyelitis. However, if there remains high clinical suspicion for osteomyelitis an MRI of the foot is a more sensitive study that can be considered. Signed by: Gail Alvarado MD on 04/21/2020 7:04 PM Dictated By: GAIL ALVARADO MD Electronically Si gned By: GAIL ALVARADO MD on 04/21/201903 Transcribed By: JOSE on 04/21/201903 COPY TO: BRENDEN SHELLEY DO CHEST 2 [id number] 18:15:00 [place] [address] Patient Name: GEOFF ALVARADO MR #: [id number] : 1960 Age/Sex: 59/M Req #: [id number] Adm Physician: Ordered by: Martin Burns MD Report #: [id number] Location: [facility]/Bed: Procedure: [id number] DX/CHEST 2 VIEWS Exam Date: 04/21/20 Exam Time: 1720 REPORT STATUS: Signed EXAMINATION: [facility] T 2 VIEWS INDICATION: Sepsis of unknown source. COMPARISON: [facility] radiographs on 04/07/2020 and 03/03/2020. FINDINGS: TUBES and LINES: Left PICC which terminates at the mid SVC. LUNGS: Normal lung vol umes. Lungs are clear. No consolidations. PLEURA: No pleural effusion or pneumothorax. HEART AND MEDIASTINUM: The cardiomediastinal silhouette is unremarkable. BONES AND SOFT TISSUES: No acute osseous lesion. Soft t issues are unremarkable. UPPER ABDOMEN: No free air under the diaphragm. IMPRESSION: 1. No focal consolidation, pleural effusion or pneum othorax. 2. Left PICC which terminates at the mid SVC. Signed by: Gail Alvarado MD on 04/21/2020 6:17 PM Dictated By: GAIL ALVARADO MD Beryl ctronically Signed By: GAIL ALVARADO MD on 04/21/201816 Transcribed By: BAKARI LEE on 04/21/201816 COPY TO: MARTIN BURNS MD CT BRAIN WO 2020-04-21 18:05:00 [facility] [address] [place] [address] Patient Name: GEOFF ALVARADO MR #: [id number] : 1960 Age/Sex: 59/M Req #: [id number] Adm Physician: Ordered by: Martin Burns MD Report #: [id number] Location: Room/Bed: Procedure: [id number] CT/CT BRA IN WO Exam Date: 04/21/20 Exam Time: 1720 REPORT STATUS: Signed Exam: Head CT withou t contrast History: Altered mental status Comparison studies: None Te chnique: Axial images were obtained from the skull base to the vertex. Coron al and sagittal images reconstructed from the axial data. Dose modulation, it erative reconstruction, and/or weight based adjustment of the mA/kV was utiliz ed to reduce the radiation dose to as low as reasonably achievable. Rad iation dose: Total DLP: 832.18 mGy*cm. Estimated effective dose: DLP x 0.0 15 Intravenous contrast: None Findings: Scalp: No abnormalities. Bones: No fractures, blastic or lytic lesions. 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 No hydrocephalus. Extra-axial spaces: No masses, no fluid collec tion. Parenchyma: There is mild generalized volume loss with slightly g reater volume loss in the bilateral frontal lobes. A few subtle hypodensities in the supratentorial white matter are nonspecific but are most compatible wit h chronic microvascular ischemic changes. No mass, acute hemorrhage or acute o r chronic cortical insult. Sellar/suprasellar region: No abnormalities. Craniocervical junction: Patent foramen magnum. No Chiari one malformation. Included paranasal sinuses: Clear. Middle ear cavities and mastoids: Clear. IMPRESSION: No acute intracranial abnormalities. Chronic finding s: 1. Mild microvascular ischemic changes. 2. Mild general parenchymal vo lume loss with a bifrontal predominance. Signed by: Dr. Wai Marquez M.D. on 04/21/2020 6:08 PM Dictated By: WAI MARQUEZ MD Electronically Sig sammie By: WAI MARQUEZ MD on 04/21/201807 Transcribed By: JOSE on 04/21/201807 COPY TO: MARTIN BURNS MD Blood leukocytes automated count (number/volume)2020-04-21 17:30:00* Test Item Value Reference Range Interpretation Comments White Blood Count (test code = 6690-2) 13.45 4.8-10.8 [facility]landsBlood erythrocytes automated count (number/volume)2020-04-21 17:30:00* Test Item Value Reference Range Interpretation Comments Red Blood Count (test code = 789-8) 4.04 4.3-5.7 [facility]landsBlood hemoglobin measurement (moles/volume)2020-04-21 17:30:00* Test Item Value Reference Range Interpretation Comments Hemoglobin (test code = 61937-2) 11.6 14.0-18.0 [facility] WoodlandsAutomated blood hematocrit (volume fraction)2020-04-21 17:30:00* Test Item Value Reference Range Interpretation Comments Hematocrit (test code = 4544-3) 33.2 38.2-49.6 [facility] WoodlandsAutomated erythrocyte mean corpuscular ssmyyg9370-76-48 17:30:00* Test Item Value Reference Range Interpretation Comments Mean Corpuscular Volume (test code = 787-2) 82.2 81-99 [facility] WoodlandsAutomated erythrocyte mean corpuscular hemoglobin (mass per erythrocyte)2020-04-21 17:30:00* Test Item Value Reference Range Interpretation Comments Mean Corpuscular Hemoglobin (test code = 785-6) 28.7 28-32 [facility] WoodlandsAutomated erythrocyte mean corpuscular hemoglobin concentration measurement (mass/volume)2020-04-21 17:30:00* Test Item Value Reference Range Interpretation Comments Mean Corpuscular Hemoglobin Concent (test code = 786-4) 34.9 31-35 [facility] WoodlandsRDW InoUb-Wsf6901-31-06 17:30:00* Test Item Value Reference Range Interpretation Comments Red Cell Distribution Width (test code = 11947-8) 13.1 11.7 -14.4 [facility] WoodlandsAutomated blood platelet count (count/volume)2020-04-21 17:30:00* Test Item Value Reference Range Interpretation Comments Platelet Count (test code = 777-3) 326 140-360 [facility] WoodlandsAutomated blood segmented neutrophil count as percentage of total fbcxqadllz3565-10-48 17:30:00* Test Item Value Reference Range Interpretation Comments Neutrophils (%) (Auto) (test code = 93322-8) 76.8 38.7-80.0 [facility]landsAutduke regional hospitaled blood lymphocyte count as percentage ot total ernayiizlp1527-96-46 17:30:00* Test Item Value Reference Range Interpretation Comments Lymphocytes (%) (Auto) (test code = 736-9) 7.7 18.0-39.1 [facility] WoodlandsAutomated blood monocyte count as percentage of total qgtwdbakfk2190-25-90 17:30:00* Test Item Value Reference Range Interpretation Comments Monocytes (%) (Auto) (test code = 5905-5) 10.6 4.4-11.3 [facility]landsAutomated blood eosinophil count as percentage of total vutpfnmyqs6933-82-69 17:30:00* Test Item Value Reference Range Interpretation Comments Eosinophils (%) (Auto) (test code = 713-8) 3.5 0.0-6.0 [facility]landsAutomated blood basophil count as percentage of total fcawnwvkko5204-07-10 17:30:00* Test Item Value Reference Range Interpretation Comments Basophils (%) (Auto) (test code = 706-2) 0.7 0.0-1.0 [facility]landsFluoroscopic procedure less than one hour fvnhkyzz7707-69-37 17:30:00* Test Item Value Reference Range Interpretation Comments IM GRANULOCYTES % (test code = IM GRANULOCYTES %) 0.7 0.0- 1.0 [facility] WoodlandsAutomated blood neutrophil count 2020-04-21 17:30:00* Test Item Value Reference Range Interpretation Comments Neutrophils # (Auto) (test code = 751-8) 10.3 2.1-6.9 [facility]landsBlood lymphocytes count (number/volume) 2020-04-21 17:30:00* Test Item Value Reference Range Interpretation Comments Lymphocytes # (Auto) (test code = 87625-6) 1.0 1.0-3.2 [facility]landsBlood monocytes automated count (number/volume)2020-04-21 17:30:00* Test Item Value Reference Range Interpretation Comments Monocytes # (Auto) (test code = 742-7) 1.4 0.2-0.8 [facility]landsAutomated blood eosinophil count 2020-04-21 17:30:00* Test Item Value Reference Range Interpretation Comments Eosinophils # (Auto) (test code = 711-2) 0.5 0.0-0.4 [facility]landsAutomated blood basophil count (count/volume)2020-04-21 17:30:00* Test Item Value Reference Range Interpretation Comments Basophils # (Auto) (test code = 704-7) 0.1 0.0-0.1 [facility]landsFluoroscopic procedure less than one hour kctszldh7310-48-73 17:30:00* Test Item Value Reference Range Interpretation Comments Absolute Immature Granulocyte (auto (layo t code = Absolute Immature Granulocyte (auto) 0.09 0-0.1 [facility]landsUrine color twfdckljqwlxp4375-31-95 17:30:00* Test Item Value Reference Range Interpretation Comments Urine Color (test code = 5778-6) ANTONY YELLOW [facility] WoodlandsUrine olptpuy7437-22-64 17:30:00* Test Item Value Reference Range Interpretation Comments Urine Clarity (test code = 16335-7) SL CLOUDY CLEAR [facility] Resourcespecific gravity of Urine by Test strip 2020-04-21 17:30:00* Test Item Value Reference Range Interpretation Comments Urine Specific [place] (test code = 5811-5) 1.015 1.010-1.02 5 [facility] WoodlandsUrine pH measurement by automated test tsoot6901-85-26 17:30:00* Test Item Value Reference Range Interpretation Comments Urine pH (test code = 29598-1) 5 5-7 [facility] WoodlandsUrine leukocyte esterase detection by ijqabpau6865-95-29 17:30:00* Test Item Value Reference Range Interpretation Comments Urine Leukocyte Esterase (test code = 5799-2) NEGATIVE NEGATIVE [facility] WoodlandsUrine nitrite hegjlcanx1022-96-11 17:30:00* Test Item Value Reference Range Interpretation Comments Urine Nitrite (test code = 81377-1) NEGATIVE NEGATIVE [facility]landsUrine protein measurement by test strip (mass/volume)2020-04-21 17:30:00* Test Item Value Reference Range Interpretation Comments Urine Protein (test code = 5804-0) 1+ NEGATIVE [facility]landsUrine glucose xfxnxseiw6657-80-75 17:30:00* Test Item Value Reference Range Interpretation Comments Urine Glucose (UA) (test code = 2349-9) NEGATIVE NEGATIVE [facility] WoodlandsUrine ketones detection by automated test utmbv5726-60-03 17:30:00* Test Item Value Reference Range Interpretation Comments Urine Ketones (test code = 25605-7) NEGATIVE NEGATIVE [facility] WoodlandsUrine urobilinogen measurement by test strip (mass/volume)2020-04-21 17:30:00* Test Item Value Reference Range Interpretation Comments Urine Urobilinogen (test code = 32653-0) 0.2 0.2-1 [facility]landsUrine total bilirubin measurement (mass/volume)2020-04-21 17:30:00* Test Item Value Reference Range Interpretation Comments Urine Bilirubin (test code = 1978-6) SMALL NEGATIVE [facility]landsUrine erythrocytes urflgsqfc3193-59-24 17:30:00* Test Item Value Reference Range Interpretation Comments Urine Blood (test code = 36764-6) NEGATIVE NEGATIVE [facility] WoodlandsAutomated urine sediment leukocyte count by microscopy (number/high power field)2020-04-21 17:30:00* Test Item Value Reference Range Interpretation Comments Urine WBC (test code = 5821-4) NONE 0-5 [facility]landsErythrocytes detection in urine sediment by light znpklixjkm3278-14-93 17:30:00* Test Item Value Reference Range Interpretation Comments Urine RBC (test code = 11494-6) NONE 0-5 [facility]landsBacteria detection in urine sediment by light zzdyheqjuz5418-22-69 17:30:00* Test Item Value Reference Range Interpretation Comments Urine Bacteria (test code = 07778-1) MODERATE NONE [facility]landsEpithelial cells detection in urine sediment by light akanhfcahp2495-30-18 17:30:00* Test Item Value Reference Range Interpretation Comments Urine Epithelial Cells (test code = 28925-1) FEW NONE [facility] WoodlandsAmorphous sediment detection in urine sediment by light budsvzxipv6218-76-32 17:30:00* Test Item Value Reference Range Interpretation Comments Urine Amorphous Sediment (test code = 8246-1) MODERATE FEW [facility] Resourceserum or plasma sodium measurement (moles/volume)2020-04-21 17:30:00* Test Item Value Reference Range Interpretation Comments Sodium Level (test code = 2951-2) 137 136-145 [facility] Resourceserum or plasma potassium measurement (moles/volume)2020-04-21 17:30:00* Test Item Value Reference Range Interpretation Comments Potassium Level (test code = 2823-3) 3.8 3.5-5.1 [facility] Resourceser[facility] or plasma chloride measurement (moles/volume)2020-04-21 17:30:00* Test Item Value Reference Range Interpretation Comments Chloride Level (test code = 2075-0) 104 98-107 [facility] Resourceserum or plasma carbon dioxide, total measurement (moles/volume)2020-04-21 17:30:00* Test Item Value Reference Range Interpretation Comments Carbon Dioxide Level (test code = 2028-9) 19 22-29 [facility] Resourceserum or plasma anion kzm2209-18-60 17:30:00* Test Item Value Reference Range Interpretation Comments Anion Gap (test code = 01227-3) 17.8 8-16 [facility]er[facility] or plasma urea nitrogen measurement (mass/volume)2020-04-21 17:30:00* Test Item Value Reference Range Interpretation Comments Blood Urea Nitrogen (test code = 3094-0) 33 7-26 [facility] Resourceser[facility] or plasma creatinine measurement (mass/volume)2020-04-21 17:30:00* Test Item Value Reference Range Interpretation Comments Creatinine (test code = 2160-0) 2.79 0.72-1.25 [facility] Resourceserum or plasma urea nitrogen/creatinine mass opuwq2377-99-25 17:30:00* Test Item Value Reference Range Interpretation Comments BUN/Creatinine Ratio (test code = 3097-3) 12 6-25 [facility] WoodlandsEstimated glomerular filtration rate (GFR) mhloeaunhpxhg5492-18-93 17:30:00* Test Item Value Reference Range Interpretation Comments Estimat Glomerular Filtration Rate (test code = 813595104) 23 >60 Ranges were taken from the National Kidney Disease Education Program and the [facility] literature.Reference ranges:60 or greater: Bubdtg30-15 ( for 3 consecutive months): Chronic kidney disease 15 or less: Kidney failureTexas Children's Hospital The WoodlandsGlucose rjxmhmejrdn8933-58-87 17:30:00* Test Item Value Reference Range Interpretation Comments Glucose Level (test code = YYW9462) 140 74-118 [facility] Resourceser[facility] or plasma calcium measurement (mass/volume)2020-04-21 17:30:00* Test Item Value Reference Range Interpretation Comments Calcium Level (test code = 69703-7) 9.4 8.4-10.2 [facility] WoodlandsFluoroscopic procedure less than one hour bkqjbamc7478-58-04 17:30:00* Test Item Value Reference Range Interpretation Comments Lactic Acid Level (test code = Lactic Acid Level) 1.5 0.5- 2.0 [facility] Resourceserum or plasma total bilirubin measurement (mass/volume)2020-04-21 17:30:00* Test Item Value Reference Range Interpretation Comments Total Bilirubin (test code = 1975-2) 1.1 0.2-1.2 [facility] WoodlandsFluoroscopic procedure less than one hour hiqhcsdj8551-46-24 17:30:00* Test Item Value Reference Range Interpretation Comments Aspartate Amino Transf (AST/SGOT) (test code = Aspartate Amino Transf (AST/SGOT)) 19 5-34 [facility] Resourceserum or plasma alanine aminotransferase measurement (enzymatic activity/volume)2020-04-21 17:30:00* Test Item Value Reference Range Interpretation Comments Alanine Aminotransferase (ALT/SGPT) (test code = 1742-6) 26 0-55 [facility]landsAmmonia Ubm-fYgk6624-34-06 17:30:00* Test Item Value Reference Range Interpretation Comments Ammonia (test code = 20398-7) 47 31-123 [facility] Resourceserum or plasma protein measurement (mass/volume)2020-04-21 17:30:00* Test Item Value Reference Range Interpretation Comments Total Protein (test code = 2885-2) 7.0 6.5-8.1 [facility] Resourceserum or plasma albumin measurement (mass/volume)2020-04-21 17:30:00* Test Item Value Reference Range Interpretation Comments Albumin (test code = 1751-7) 2.7 3.5-5.0 [facility] WoodlandsPlasma globulin measurement (mass/volume) 2020-04-21 17:30:00* Test Item Value Reference Range Interpretation Comments Globulin (test code = 38263-2) 4.3 2.3-3.5 [facility] Resourceser[facility] or plasma albumin/globulin mass abzpb5800-09-85 17:30:00* Test Item Value Reference Range Interpretation Comments Albumin/Globulin Ratio (test code = 1759-0) 0.6 0.8-2.0 [facility] Resourceserum or plasma alkaline phosphatase measurement (enzymatic activity/volume)2020-04-21 17:30:00* Test Item Value Reference Range Interpretation Comments Alkaline Phosphatase (test code = 6768-6) 724 40-150 [facility] WoodlandsBNP Cfe-zOqe1728-75-06 17:30:00* Test Item Value Reference Range Interpretation Comments B-Type Natriuretic Peptide (test code = 02731-4) 74.5 0-100 [facility] WoodlandsTroponin I measurement by highly sensitive enzyme mrgsefinnko9137-78-99 17:30:00* Test Item Value Reference Range Interpretation Comments Troponin I (test code = 14368-4) 0.120 0-0.300 [facility] WoodlandsUrine color xzolademxnfku7183-84-45 17:30:00* Test Item Value Reference Range Interpretation Comments Urine Color (test code = 5778-6) ANTONY YELLOW [facility] WoodlandsUrine gjkkffz2247-43-37 17:30:00* Test Item Value Reference Range Interpretation Comments Urine Clarity (test code = 96539-0) SL CLOUDY CLEAR [facility] Resourcespecific gravity of Urine by Test strip 2020-04-21 17:30:00* Test Item Value Reference Range Interpretation Comments Urine Specific [place] (test code = 5811-5) 1.015 1.010-1.02 5 [facility] WoodlandsUrine pH measurement by automated test heznq1136-34-10 17:30:00* Test Item Value Reference Range Interpretation Comments Urine pH (test code = 90592-3) 5 5-7 [facility] WoodlandsUrine leukocyte esterase detection by eudytnjy4835-78-73 17:30:00* Test Item Value Reference Range Interpretation Comments Urine Leukocyte Esterase (test code = 5799-2) NEGATIVE NEGATIVE [facility] WoodlandsUrine nitrite hzyawpycl2633-13-54 17:30:00* Test Item Value Reference Range Interpretation Comments Urine Nitrite (test code = 09772-0) NEGATIVE NEGATIVE [facility] WoodlandsUrine protein measurement by test strip (mass/volume)2020-04-21 17:30:00* Test Item Value Reference Range Interpretation Comments Urine Protein (test code = 5804-0) 1+ NEGATIVE [facility] glucose cdqobfuzn1410-57-09 17:30:00* Test Item Value Reference Range Interpretation Comments Urine Glucose (UA) (test code = 2349-9) NEGATIVE NEGATIVE [facility]lands[facility]rine ketones detection by automated test [id number] 17:30:00* Test Item Value Reference Range Interpretation Comments Urine Ketones (test code = 72966-9) NEGATIVE NEGATIVE [facility]landsUrine urobilinogen measurement by test strip (mass/volume)2020-04-21 17:30:00* Test Item Value Reference Range Interpretation Comments Urine Urobilinogen (test code = 49399-0) 0.2 0.2-1 [facility] total bilirubin measurement (mass/volume)2020-04-21 17:30:00* Test Item Value Reference Range Interpretation Comments Urine Bilirubin (test code = 1978-6) SMALL NEGATIVE [facility]landsU[facility] erythrocytes khhccpunn4594-51-65 17:30:00* Test Item Value Reference Range Interpretation Comments Urine Blood (test code = 24695-2) NEGATIVE NEGATIVE [facility]landsAutomated urine sediment leukocyte count by microscopy (number/high power field)2020-04-21 17:30:00* Test Item Value Reference Range Interpretation Comments Urine WBC (test code = 5821-4) NONE 0-5 [facility]landsErythrocytes detection in urine sediment by light zsogfsxhjd8085-24-72 17:30:00* Test Item Value Reference Range Interpretation Comments Urine RBC (test code = 94984-7) NONE 0-5 [facility]landsBacteria detection in urine sediment by light yvyflrokah7333-83-26 17:30:00* Test Item Value Reference Range Interpretation Comments Urine Bacteria (test code = 54032-2) MODERATE NONE [facility]landsEpithelial cells detection in urine sediment by light cwcfspbnly3395-96-82 17:30:00* Test Item Value Reference Range Interpretation Comments Urine Epithelial Cells (test code = 40058-7) FEW NONE [facility]landsAmorphous sediment detection in urine sediment by light hoodirawqw8208-24-38 17:30:00* Test Item Value Reference Range Interpretation Comments Urine Amorphous Sediment (test code = 8246-1) MODERATE FEW [facility]landsFluoroscopic procedure less than one hour vltrwevw4422-54-64 17:30:00* Test Item Value Reference Range Interpretation Comments Lactic Acid Level (test code = Lactic Acid Level) 1.5 0.5- 2.0 [facility] [place] [facility] Resourceserum or plasma total bilirubin measurement (mass/volume)2020-04-21 17:30:00* Test Item Value Reference Range Interpretation Comments Total Bilirubin (test code = 1975-2) 1.1 0.2-1.2 [facility]landsFluoroscopic procedure less than one hour mkbqptwq0611-52-07 17:30:00* Test Item Value Reference Range Interpretation Comments Aspartate Amino Transf (AST/SGOT) (test code = Aspartate Amino Transf (AST/SGOT)) 19 5-34 [facility] [place] [facility] Resourceserum or plasma alanine aminotransferase measurement (enzymatic activity/volume)2020-04-21 17:30:00* Test Item Value Reference Range Interpretation Comments Alanine Aminotransferase (ALT/SGPT) (test code = 1742-6) 26 0-55 [facility]landsAmmonia Mvp-yCav8537-82-06 17:30:00* Test Item Value Reference Range Interpretation Comments Ammonia (test code = 99619-0) 47 31-123 [facility] [place] [facility] Resourceserum or plasma protein measurement (mass/volume)2020-04-21 17:30:00* Test Item Value Reference Range Interpretation Comments Total Protein (test code = 2885-2) 7.0 6.5-8.1 [facility] [place] [facility] Resourceserum or plasma albumin measurement (mass/volume)2020-04-21 17:30:00* Test Item Value Reference Range Interpretation Comments Albumin (test code = 1751-7) 2.7 3.5-5.0 [facility]landsPlasma globulin measurement (mass/volume) 2020-04-21 17:30:00* Test Item Value Reference Range Interpretation Comments Globulin (test code = 34799-6) 4.3 2.3-3.5 [facility] [place] [facility] Resourceser[facility] or plasma albumin/globulin mass pgqez2648-82-04 17:30:00* Test Item Value Reference Range Interpretation Comments Albumin/Globulin Ratio (test code = 1759-0) 0.6 0.8-2.0 [facility] [place] [facility] Resourceser[facility] or plasma alkaline phosphatase measurement (enzymatic activity/volume)2020-04-21 17:30:00* Test Item Value Reference Range Interpretation Comments Alkaline Phosphatase (test code = 6768-6) 724 40-150 [facility]landsBNP Rbu-pKgi7617-24-06 17:30:00* Test Item Value Reference Range Interpretation Comments B-Type Natriuretic Peptide (test code = 21603-1) 74.5 0-100 [facility]landsBacterial blood kqzjmna7369-27-79 17:30:00* Test Item Value Reference Range Interpretation Comments Blood Culture (test code = 600-7) GRAM POSITIVE BACILLUS 1 [facility]landsCHEST XRAY LINE [id number] 13:57:00 [place] [address] Patient Name: GEOFF ALVARADO MR #: [id number] : 1960 Age/Sex: 59/M Req #: [id number] Adm Physician: Ordered by: Tamara ARELLANO DPM Report #: [id number] Location: DX Room/Bed: Procedure: [id number] DX/CHEST XRA Y LINE PLACEMENT Exam Date: 04/07/20 Exam Time: 1300 REPORT STATUS: Signed EXAMINATI ON: CHEST XRAY LINE PLACEMENT INDICATION: Line placement COMPARIS ON: Chest radiograph 03/03/2020 FINDINGS: LINES/TUBES:Left PICC li ne terminates near the superior cavoatrial junction. LUNGS:The lungs are we ll-inflated. No focal consolidation or pulmonary edema. PLEURA:No pleural e ffusion or pneumothorax. MEDIASTINUM:The cardiomediastinal silhouette appea rs normal in size and shape. BONES/SOFT TISSUES:No acute osseous injury. ABDOMEN:No free air under the diaphragm. IMPRESSION: Left PICC bashir e terminates near the superior cavoatrial junction. Signed by: Franki Alicia MD on 04/07/2020 1:58 PM Dictated By: FRANKI ALICIA MD Electronically Geni d By: FRANKI ALICIA MD on 04/07/201357 Transcribed By: JOSE on 04/07/201357 COPY TO: Tamara ARELLANO DPM Prothrombin time (PT) in platelet poor plasma by coagulation tzjrk3520-14-05 12:30:00* Test Item Value Reference Range Interpretation Comments Prothrombin Time (test code = 5902-2) 13.3 11.9-14.5 [facility]landsINR in Platelet poor plasma by Coagulation cyovk7565-11-83 12:30:00* Test Item Value Reference Range Interpretation Comments Prothromb Time International Ratio (test code = 6301-6) 0.96 Oral Anticoagulant Therapy INR Values:1. Low Intensity Therapy 1.5 - 2.02 . Moderate Intensity Therapy 2.0 - 3.03. High Intensity Therapy(1) 2.5 - 3. 54. High Intensity Therapy(2) 3.0 - 4.05. Panic Value INR > 5.0 [facility]landsActivated partial thromboplastin time (aPTT) in platelet poor plasma by coagulation lpnvj6068-11-49 12:30:00* Test Item Value Reference Range Interpretation Comments Activated Partial Thromboplast Time (test code = 01175-8) 29.3 23.8-35.5 [facility]landsProthrombin time (PT) in platelet poor plasma by coagulation tybug5272-80-14 12:30:00* Test Item Value Reference Range Interpretation Comments Prothrombin Time (test code = 5902-2) 13.3 11.9-14.5 [facility]landsINR in Platelet poor plasma by Coagulation whjoc7452-86-17 12:30:00* Test Item Value Reference Range Interpretation Comments Prothromb Time International Ratio (test code = 6301-6) 0.96 Oral Anticoagulant Therapy INR Values:1. Low Intensity Therapy 1.5 - 2.02 . Moderate Intensity Therapy 2.0 - 3.03. High Intensity Therapy(1) 2.5 - 3. 54. High Intensity Therapy(2) 3.0 - 4.05. Panic Value INR > 5.0 [facility]landsActivated partial thromboplastin time (aPTT) in platelet poor plasma by coagulation fzxeg6409-13-76 12:30:00* Test Item Value Reference Range Interpretation Comments Activated Partial Thromboplast Time (test code = 63758-7) 29.3 23.8-35.5 [facility]landsCHEST XRAY LINE [id number] 15:54:00 [facility] [address] [address] Patient Name: GEOFF ALVARADO MR #: [id number] : 1960 Age/Sex: 59/M Req #: [id number] Adm Physician: Ordered by: Tamara ARELLANO DPTex Report #: [id number] Location: DX Room/Bed: Procedure: [id number] DX/CHEST XRA Y LINE PLACEMENT Exam Date: 03/16/20 Exam Time: 154 REPORT STATUS: Signed TECHNIQUE : Frontal view of the chest. INDICATION: [id number] CHECK PICC PLACEMENT COMPARISON: None DISCUSSION: Limited evaluation due to p ortable technique. Lines and hardware: Right PICC is noted with tip project ing at the cavoatrial junction. Heart and mediastinum: Stable. Lungs and p leura: No focal airspace consolidation. No pleural effusion. No pneumothorax. Soft tissues and bones: No acute abnormality. IMPRESSION: Right PICC no juarez with tip projecting at the cavoatrial junction. Negative for pneumothorax. Signed by: César Vargas MD on 03/16/2020 3:55 PM Dictated B y: CÉSAR VARGAS MD 52 Transcribed By: JOSE on 03/16/201554 COPY TO: Tamara ARELLANO DPM CHEST XRAY LINE [id number] 15:02:00 [place] [address] Patient Name: GEOFF ALVARADO MR #: [id number] : 1960 Age/Sex: 59/M Req #: [id number] Adm Physician: Ordered by: Tamara ARELLANO DPM Report #: [id number] Location: DX Room/Bed: Procedure: [id number] DX/CHEST XRA Y LINE PLACEMENT Exam Date: 03/03/20 Exam Time: 1443 REPORT STATUS: Signed EXAMINATI ON: CHEST XRAY LINE PLACEMENT INDICATION: Line placement COMPARIS ON: None FINDINGS: LINES/TUBES:Left PICC line terminates at the s uperior cavoatrial junction. LUNGS:The lungs are well-inflated. No focal co nsolidation or pulmonary edema. PLEURA:No pleural effusion or pneumothorax. MEDIASTINUM:The cardiomediastinal silhouette appears normal in size and sh ape. BONES/SOFT TISSUES:No acute osseous injury. ABDOMEN:No free air u nder the diaphragm. IMPRESSION: Left PICC line terminates at the supe rior cavoatrial junction. No focal pneumonia or pulmonary edema. Geni d by: Franki Alicia MD on 03/03/2020 3:03 PM Dictated By: FRANKI ALICIA MD Beryl ctronically Signed By: FRANKI ALICIA MD on 03/03/201502 Transcribed By: JOSE maradiaga 03/03/201502 COPY TO: Tamara ARELLANO DPM COMPREHENSIVE METABOLIC [id number] 06:58:00* Test Item Value Reference Range Interpretation Comments SODIUM (test code = NA) 139 mmol/l 134.0-147.0 N POTASSIUM (test code = K) 4.0 mmol/L 3.6-5.2 N CHLORIDE (test code = CL) 106 mmol/l 98.0-107.0 N CARBON DIOXIDE (test code = CO2) 23.7 mmol/l 21.0-33.0 N ANION GAP (test code = GAP) 13.3 0-20 N GLUCOSE (test code = GLU) 76 mg/dl 70.0-110.0 N BLOOD UREA NITROGEN (test code = BUN) 12 mg/dl 7.0-18.0 N CREATININE (test code = CREAT) 1.02 mg/dL 0.60-1.30 N GFR NON BLACK (test code = GFRNONBLACK) 79 mL/min 80-90 L GFR BLACK (test code = GFRBLACK) 95 mL/min 97-109 L TOTAL PROTEIN (test code = PROT) 6.5 gm/dL 6.4-8.2 N ALBUMIN (test code = ALB) 2.1 gm/dl 3.2-4.7 L CALCIUM (test code = CA) 8.0 mg/dl 8.0-10.5 N BILIRUBIN TOTAL (test code = BILT) 0.5 mg/dl 0.0-1.0 N SGOT/AST (test code = AST) 17 Units/L 15.0-37.0 N SGPT/ALT (test code = ALT) 17 Units/L 12.0-78.0 N ALKALINE PHOSPHATASE TOTAL (test code = ALKP) 58 Units/L 50.0-136 .0 N [id number] 06:58:00* Test Item Value Reference Range Interpretation Comments MAGNESIUM (test code = MAG) 1.6 mg/dl 1.8-2.4 L CBC W/AUTO [id number] 06:40:00* Test Item Value Reference Range Interpretation Comments WHITE BLOOD CELL (test code = WBC) 6.0 K/mm3 4.5-11.0 N RED BLOOD CELL (test code = RBC) 4.30 M/mm3 4.40-5.90 L HEMOGLOBIN (test code = HGB) 12.1 gm/dL 13.0-17.0 L HEMATOCRIT (test code = HCT) 35.9 % 36.0-48.0 L MEAN CELL VOLUME (test code = MCV) 83.5 UM3 80.0-94.0 MEAN CELL HGB (test code = MCH) 28.1 UUG 25.5-32.5 N MEAN CELL HGB CONCETRATION (test code = MCHC) 33.7 gm/dL 29.0-35. 5 N RED CELL DISTRIBUTION WIDTH (test code = RDW) 12.4 % 11.5-15. 0 N RED CELL DISTRIBUTION WIDTH SD (test code = RDW-SD) 37.7 fL 34 .8-50.2 N PLATELET COUNT (test code = PLT) 421 K/mm3 150-400 H MEAN PLATELET VOLUME (test code = MPV) 9.0 fl 7.4-10.4 N NEUTROPHIL % (test code = NT%) 66.7 % 49.0-76.0 N IMMATURE GRANULOCYTE % (test code = IG%) 0.8 % 0.0-0.4 H LYMPHOCYTE % (test code = LY%) 17.7 % 23.0-38.0 L MONOCYTE % (test code = MO%) 12.5 % 1.0-10.0 H EOSINOPHIL % (test code = EO%) 2.0 % 1.0-5.0 N BASOPHIL % (test code = BA%) 0.3 % 0.0-1.0 N NEUTROPHIL # (test code = NT#) 4.0 K/mm3 2.4-6.3 N IMMATURE GRANULOCYTE # (test code = IG#) 0.05 x10 3/uL 0.00-0.07 N LYMPHOCYTE # (test code = LY#) 1.1 K/mm3 1.2-4.0 L MONOCYTE # (test code = MO#) 0.8 K/mm3 0.0-0.6 H EOSINOPHIL # (test code = EO#) 0.1 K/MM3 0.0-0.7 N BASOPHIL # (test code = BA#) 0.0 K/mm3 0.0-0.2 N [id number] 10:24:00* Test Item Value Reference Range Interpretation Comments [id number] (test code = TQYTA44Urwuafme) POSITIVE Negative A Note: this entry is for TRACKING purposes only and the testwas done outside [facility], the performing entity isfound in specimen comments.Note: this entry is for TRACKING purposes only and the testwas done outside [facility], the performing entity isfound in specimen comments. The [facility]Patient's account number fro m transferring facility: [id number] patient's current lab results are: Posi tiveCOMPREHENSIVE METABOLIC [id number] 05:44:00* Test Item Value Reference Range Interpretation Comments SODIUM (test code = NA) 134 mmol/l 134.0-147.0 N POTASSIUM (test code = K) 4.4 mmol/L 3.6-5.2 N CHLORIDE (test code = CL) 100 mmol/l 98.0-107.0 N CARBON DIOXIDE (test code = CO2) 24.0 mmol/l 21.0-33.0 N ANION GAP (test code = GAP) 14.4 0-20 N GLUCOSE (test code = GLU) 87 mg/dl 70.0-110.0 N BLOOD UREA NITROGEN (test code = BUN) 17 mg/dl 7.0-18.0 N CREATININE (test code = CREAT) 1.33 mg/dL 0.60-1.30 H GFR NON BLACK (test code = GFRNONBLACK) 58 mL/min 80-90 L GFR BLACK (test code = GFRBLACK) 70 mL/min 97-109 L TOTAL PROTEIN (test code = PROT) 7.4 GM/DL 6.0-8.1 N ALBUMIN (test code = ALB) 2.7 gm/dL 3.2-4.7 L CALCIUM (test code = CA) 8.6 mg/dl 8.0-10.5 N BILIRUBIN TOTAL (test code = BILT) 0.6 mg/dl 0.0-1.0 N SGOT/AST (test code = AST) 22 Units/L 15.0-37.0 N SGPT/ALT (test code = ALT) 19 Units/L 12.0-78.0 N ALKALINE PHOSPHATASE TOTAL (test code = ALKP) 58 Units/L 50.0-136 .0 N [id number] 05:44:00* Test Item Value Reference Range Interpretation Comments MAGNESIUM (test code = MAG) 2.1 mg/dl 1.8-2.4 N CBC W/AUTO [id number] 05:38:00* Test Item Value Reference Range Interpretation Comments WHITE BLOOD CELL (test code = WBC) 6.9 K/mm3 4.5-11.0 N RED BLOOD CELL (test code = RBC) 4.42 M/mm3 4.40-5.90 N HEMOGLOBIN (test code = HGB) 13.2 gm/dL 13.0-17.0 N HEMATOCRIT (test code = HCT) 38.5 % 36.0-48.0 N MEAN CELL VOLUME (test code = MCV) 87.1 UM3 80.0-94.0 MEAN CELL HGB (test code = MCH) 29.9 UUG 25.5-32.5 N MEAN CELL HGB CONCETRATION (test code = MCHC) 34.3 gm/dL 29.0-35. 5 N RED CELL DISTRIBUTION WIDTH (test code = RDW) 12.8 % 11.5-15. 0 N RED CELL DISTRIBUTION WIDTH SD (test code = RDW-SD) 39.2 fL 34 .8-50.2 N PLATELET COUNT (test code = PLT) 355 K/mm3 150-400 N MEAN PLATELET VOLUME (test code = MPV) 9.5 fl 7.4-10.4 N NEUTROPHIL % (test code = NT%) 64.3 % 49.0-76.0 N IMMATURE GRANULOCYTE % (test code = IG%) 0.9 % 0.0-0.4 H LYMPHOCYTE % (test code = LY%) 19.0 % 23.0-38.0 L MONOCYTE % (test code = MO%) 13.1 % 1.0-10.0 H EOSINOPHIL % (test code = EO%) 2.3 % 1.0-5.0 N BASOPHIL % (test code = BA%) 0.4 % 0.0-1.0 N NEUTROPHIL # (test code = NT#) 4.4 K/mm3 2.4-6.3 N IMMATURE GRANULOCYTE # (test code = IG#) 0.06 x10 3/uL 0.00-0.07 N LYMPHOCYTE # (test code = LY#) 1.3 K/mm3 1.2-4.0 N MONOCYTE # (test code = MO#) 0.9 K/mm3 0.0-0.6 H EOSINOPHIL # (test code = EO#) 0.2 K/MM3 0.0-0.7 N BASOPHIL # (test code = BA#) 0.0 K/mm3 0.0-0.2 N COMPREHENSIVE METABOLIC [id number] 19:58:00* Test Item Value Reference Range Interpretation Comments SODIUM (test code = NA) 137 mmol/l 134.0-147.0 N POTASSIUM (test code = K) 4.6 mmol/L 3.6-5.2 N CHLORIDE (test code = CL) 103 mmol/l 98.0-107.0 N CARBON DIOXIDE (test code = CO2) 23.1 mmol/l 21.0-33.0 N ANION GAP (test code = GAP) 15.5 0-20 N GLUCOSE (test code = GLU) 93 mg/dl 70.0-110.0 N BLOOD UREA NITROGEN (test code = BUN) 19 mg/dl 7.0-18.0 H CREATININE (test code = CREAT) 1.30 mg/dL 0.60-1.30 N GFR NON BLACK (test code = GFRNONBLACK) 60 mL/min 80-90 L GFR BLACK (test code = GFRBLACK) 72 mL/min 97-109 L TOTAL PROTEIN (test code = PROT) 7.3 gm/dL 6.4-8.2 N ALBUMIN (test code = ALB) 2.5 gm/dl 3.2-4.7 L CALCIUM (test code = CA) 8.5 mg/dl 8.0-10.5 N BILIRUBIN TOTAL (test code = BILT) 0.5 mg/dl 0.0-1.0 N SGOT/AST (test code = AST) 21 Units/L 15.0-37.0 N SGPT/ALT (test code = ALT) 16 Units/L 12.0-78.0 N ALKALINE PHOSPHATASE TOTAL (test code = ALKP) 61 Units/L 50.0-136 .0 N [id number] 19:58:00* Test Item Value Reference Range Interpretation Comments MAGNESIUM (test code = MAG) 2.1 mg/dl 1.8-2.4 N VITAMIN [id number] 19:58:00* Test Item Value Reference Range Interpretation Comments VITAMIN B12 (test code = VITB12) 425 pg/mL 193-986 N [id number] 19:58:00* Test Item Value Reference Range Interpretation Comments FERRITIN (test code = PRINCE) 481 ng/mL 23.9-336.2 H [id number] 19:37:00* Test Item Value Reference Range Interpretation Comments HGBA1C% (test code = HGBA1C%) 5.7 %A1C 4.8-6.0 N ESTIMATED AVERAGE GLUCOSE (test code = EAG) 117 MG/DL C REACTIVE [id number] 19:26:00* Test Item Value Reference Range Interpretation Comments C REACTIVE PROTEIN (test code = CRP) 11.3 mg/dL 0.0-0.9 H PLEASE MAKE NOTE OF NEW CRP REFERENCE RANGE D-DIMER/[id number] 19:23:00* Test Item Value Reference Range Interpretation Comments D-DIMER/FSP (test code = DDIMER) 555 ng/mLFEU 0-500 HH Thrombosis and/or Pulmonary Embolism and the clinicalcut-off value for exclusion (500 ng/mL FEU) of theseconditions is validated by the career education teacher of the method. A negative D- Dimer result when combined with a clinicalassessment of low pretest probability has been shown to havea high negative predictive value of DVT or PE. D-Dimer values >500 ng/mL FEU are not diagnostic for DVT,PE, or DIC without other confirmatory tests and appropriateclinical evaluations. CBC W/AUTO [id number] 19:12:00* Test Item Value Reference Range Interpretation Comments WHITE BLOOD CELL (test code = WBC) 6.1 K/mm3 4.5-11.0 N RED BLOOD CELL (test code = RBC) 4.72 M/mm3 4.40-5.90 N HEMOGLOBIN (test code = HGB) 13.4 gm/dL 13.0-17.0 N HEMATOCRIT (test code = HCT) 39.6 % 36.0-48.0 N MEAN CELL VOLUME (test code = MCV) 83.9 UM3 80.0-94.0 N MEAN CELL HGB (test code = MCH) 28.4 UUG 25.5-32.5 N MEAN CELL HGB CONCETRATION (test code = MCHC) 33.8 gm/dL 29.0-35. 5 N RED CELL DISTRIBUTION WIDTH (test code = RDW) 12.7 % 11.5-15. 0 N RED CELL DISTRIBUTION WIDTH SD (test code = RDW-SD) 38.4 fL 34 .8-50.2 N PLATELET COUNT (test code = PLT) 374 K/mm3 150-400 N MEAN PLATELET VOLUME (test code = MPV) 9.6 fl 7.4-10.4 N NEUTROPHIL % (test code = NT%) 68.4 % 49.0-76.0 N IMMATURE GRANULOCYTE % (test code = IG%) 0.8 % 0.0-0.4 H LYMPHOCYTE % (test code = LY%) 16.9 % 23.0-38.0 L MONOCYTE % (test code = MO%) 11.8 % 1.0-10.0 H EOSINOPHIL % (test code = EO%) 1.8 % 1.0-5.0 N BASOPHIL % (test code = BA%) 0.3 % 0.0-1.0 N NEUTROPHIL # (test code = NT#) 4.2 K/mm3 2.4-6.3 N IMMATURE GRANULOCYTE # (test code = IG#) 0.05 x10 3/uL 0.00-0.07 N LYMPHOCYTE # (test code = LY#) 1.0 K/mm3 1.2-4.0 L MONOCYTE # (test code = MO#) 0.7 K/mm3 0.0-0.6 H EOSINOPHIL # (test code = EO#) 0.1 K/MM3 0.0-0.7 N BASOPHIL # (test code = BA#) 0.0 K/mm3 0.0-0.2 N - XR FOOT 3 + V [id number] 14:57:00 FAX: Thelma Ramirez MD [phone] [place]: St: [facility] FAX: Erica Smith [phone] FAX: Wai Del Toro [phone] Name: GEOFF ALVARADO [facility] : 1960 Age/S: 59/M [address] Unit #: [id number] Loc: [address] [place], [place] Phys: Erica Cruz [address] Acct: [id number] Dis Date: Status: ADM IN PH ONE #: [phone] Exam Date: 12/19/2019 1420 FAX #: [phone] Reason: foot wound EXAMS: CPT CODE: [id number] XR FOOT 3 + [place] [address] CLINICAL HISTO RY: Foot wound. . Left foot, 3 views COMPARISON: November 06, 2017. The arthrodesis components ankle appea r to be intact. Hardware without any loosening. Subtalar joint appropria te. The great toe shows a hammertoe appearance similarly. Metatarsals in tact. A soft tissue ulceration seen at the calcaneal level. No bony destructive or sclerotic process. IMPRES THIERRY: No acute bone or joint space abnormality. No findings of osteomye litis. Ankle arthrodesis maintained. Loca tion: U19 at 6717 Reported and signed by: Matias Luis M.D CC: Thelma Ramirez MD; Erica MCCLURE; Wai Boudreaux M.D. Technologist: DILLON SEO Trnarrd Date/Time/By: 12/19/2019 (1079) : By: Eduardo HerreraRCM1 PAGE 1 Signed Report FAX: Thelma Ramirez MD [phone] [place]: St: [facility] FAX: Erica Smith [phone] FAX: Wai Del Toro [phone] Name: GEOFF ALVARADO [facility] : 1960 Age/S: 59/M [address] [facility] Unit #: [id number] Loc: [address] [place], [place] Phys: Erica Cruz [address] Acct: [id number] Dis Date: Status: ADM IN PHONE #: [phone] Exam Date: 12/19/2019 1420 FAX #: [phone] Reason: foot wound EXAMS: CPT CODE: [id number] XR FOOT 3 + [place] [address] < Continued> Orig Print D/T: S: 12/19/2019 (1500) PAGE 2 Signed Report STREPTOCOCCUS PCR [id number] 16:41:00* Test Item Value Reference Range Interpretation Comments STREPTOCOCCUS DYSGALACTIAE (test code = STREPGC) NEGATIVE FOR G/C N EGATIVE STREPA MOLECULAR (test code = STREPAMOL) NEGATIVE FOR GRP A NEGATIV E BASIC METABOLIC [id number] 14:44:00* Test Item Value Reference Range Interpretation Comments SODIUM (test code = NA) 137 mmol/L 136-145 N POTASSIUM (test code = K) 4.2 mmol/L 3.5-5.1 N CHLORIDE (test code = CL) 103.0 mmol/L 98-107 N CARBON DIOXIDE (test code = CO2) 25.0 mmol/L 21-32 N ANION GAP (test code = GAP) 13.2 10-20 N GLUCOSE (test code = GLU) 129 mg/dL 74-106 H BLOOD UREA NITROGEN (test code = BUN) 28 mg/dL 7-18 H GLOMERULAR FILTRATION RATE (test code = GFR) 29 mL/min >=60 Estimated GFR by using Modified MDRD formula.Chronic kidney disease is defined as either kidney damageor GFR <60 mL/min/1.73 m2 for >3 months. CREATININE (test code = CREAT) 2.30 mg/dL 0.7-1.3 H BUN/CREATININE RATIO (test code = BUN/CREA) 12.1 10-20 N CALCIUM (test code = CA) 9.4 mg/dL 8.5-10.1 N HEPATIC FUNCTION [id number] 14:44:00* Test Item Value Reference Range Interpretation Comments TOTAL PROTEIN (test code = PROT) 8.1 gram/dL 6.4-8.2 N ALBUMIN (test code = ALB) 2.8 g/dL 3.4-5.0 L GLOBULIN (test code = GLOB) 5.3 gram/dL 2.7-4.2 H ALBUMIN/GLOBULIN RATIO (test code = A/G) 0.5 0.75-1.50 L BILIRUBIN TOTAL (test code = BILT) 0.50 mg/dL 0.0-1.0 N BILIRUBIN DIRECT (test code = BILD) 0.17 mg/dL 0.0-0.20 N SGOT/AST (test code = AST) 19 IUnit/L 15-37 N SGPT/ALT (test code = ALT) 19 IUnit/L 12-78 N ALKALINE PHOSPHATASE TOTAL (test code = ALKP) 66 IUnit/L 45-117 N Note change in reference range due to change in reagent. BASIC METABOLIC [id number] 14:40:00* Test Item Value Reference Range Interpretation Comments SODIUM (test code = NA) 137 mmol/L 136-145 N POTASSIUM (test code = K) 4.2 mmol/L 3.5-5.1 N CHLORIDE (test code = CL) 103.0 mmol/L 98-107 N CARBON DIOXIDE (test code = CO2) mmol/L 21-32 ANION GAP (test code = GAP) 10-20 GLUCOSE (test code = GLU) mg/dL 74-106 BLOOD UREA NITROGEN (test code = BUN) mg/dL 7-18 GLOMERULAR FILTRATION RATE (test code = GFR) mL/min >=60 CREATININE (test code = CREAT) mg/dL 0.7-1.3 BUN/CREATININE RATIO (test code = BUN/CREA) 10-20 CALCIUM (test code = CA) mg/dL 8.5-10.1 HEPATIC FUNCTION [id number] 14:40:00* Test Item Value Reference Range Interpretation Comments TOTAL PROTEIN (test code = PROT) gram/dL 6.4-8.2 ALBUMIN (test code = ALB) g/dL 3.4-5.0 GLOBULIN (test code = GLOB) gram/dL 2.7-4.2 ALBUMIN/GLOBULIN RATIO (test code = A/G) 0.75-1.50 BILIRUBIN TOTAL (test code = BILT) mg/dL 0.0-1.0 BILIRUBIN DIRECT (test code = BILD) mg/dL 0.0-0.20 SGOT/AST (test code = AST) IUnit/L 15-37 SGPT/ALT (test code = ALT) IUnit/L 12-78 ALKALINE PHOSPHATASE TOTAL (test code = ALKP) IUnit/L 45-117 CBC W/MANUAL [id number] 14:32:00* Test Item Value Reference Range Interpretation Comments WHITE BLOOD CELL (test code = WBC) 9.5 K/mm3 4.5-12.5 N RED BLOOD CELL (test code = RBC) 5.16 mill/mm3 4.0-5.8 N HEMOGLOBIN (test code = HGB) 14.4 gram/dL 13.0-17.5 N HEMATOCRIT (test code = HCT) 43.7 % 42.0-52.0 N MEAN CELL VOLUME (test code = MCV) 84.7 fL 80-98 N MEAN CELL HGB (test code = MCH) 27.9 picogram 27.0-33.0 N MEAN CELL HGB CONCETRATION (test code = MCHC) 33.0 gram/dL 33.0-36. 0 N RED CELL DISTRIBUTION WIDTH (test code = RDW) 12.9 % 11.6-16. 2 N RED CELL DISTRIBUTION WIDTH SD (test code = RDW-SD) 39.7 fL 37 .0-51.0 N PLATELET COUNT (test code = PLT) 285 K/mm3 150-450 N MEAN PLATELET VOLUME (test code = MPV) 10.0 fL 6.7-11.0 N IMMATURE GRANULOCYTE % (test code = IG%) 0.6 % 0.0-5.0 N NUCLEATED RBC % (test code = NRBC%) 0.0 % 0-0 N NEUTROPHIL # (test code = NT#) 7.48 K/mm3 1.8-7.7 N IMMATURE GRANULOCYTE # (test code = IG#) 0.06 x10 3/uL 0-0.03 H LYMPHOCYTE # (test code = LY#) 0.92 K/mm3 1.0-5.0 L MONOCYTE # (test code = MO#) 0.96 K/mm3 0-0.8 H EOSINOPHIL # (test code = EO#) 0.04 K/mm3 0.0-0.5 N BASOPHIL # (test code = BA#) 0.01 K/mm3 0.0-0.2 N NUCLEATED RBC # (test code = NRBC#) 0.00 K/mm3 0.0-0.1 N MANUAL DIFF REQUIRED (test code = MDIFF) YES STAIN ACCEPTABILITY (test code = STN ACCEPTABLE) STAIN ACCEPTABLE TOTAL CELLS COUNTED (test code = TCC) 115 #CELLS SEGMENTED NEUTROPHILS (test code = SEG) 80.9 % 39-69 H BAND NEUTROPHIL (test code = BAND) 0 % 0-10 N LYMPHOCYTE (test code = LYMPH) 9.5 % 25-55 L REACTIVE LYMPH (test code = RELYMPH) 0 % MONOCYTE (test code = MON) 8.7 % 0-10 N EOSINOPHIL (test code = EOS) 0 % 0.0-5.0 N BASOPHIL (test code = BASO) 0.9 % 0-1.0 N METAMYELOCYTE (test code = META) 0 % 0-0 N MYELOCYTE (test code = MYELO) 0 % 0.0-0.0 N PROMYELOCYTE (test code = PROM) 0 % 0-0 N POLYCHROMASIA (test code = POLC) 1+ POIKILOCYTOSIS (test code = POIK) 2+ ANISOCYTOSIS (test code = ANISO) 1+ MICROCYTOSIS (test code = MICR) 1+ PLATELET ESTIMATE (test code = PLTEST) ADEQUATE PLATELET MORPHOLOGY (test code = PLTMORPH) NORMAL IMMATURE FORMS (test code = IMMAT) 0 % 0-0 N Coronavirus 2019 nCoV [id number] 14:16:00* Test Item Value Reference Range Interpretation Comments Coronavirus 2019 nCoV Bedside (test code = [id number]) Positive Is patient requiring admission or transfer? YIndication for rapid COVID-19 testi ng: High Clinical SuspicionCBC W/MANUAL [id number] 14:14:00* Test Item Value Reference Range Interpretation Comments WHITE BLOOD CELL (test code = WBC) 9.5 K/mm3 4.5-12.5 N RED BLOOD CELL (test code = RBC) 5.16 mill/mm3 4.0-5.8 N HEMOGLOBIN (test code = HGB) 14.4 gram/dL 13.0-17.5 N HEMATOCRIT (test code = HCT) 43.7 % 42.0-52.0 N MEAN CELL VOLUME (test code = MCV) 84.7 fL 80-98 N MEAN CELL HGB (test code = MCH) 27.9 picogram 27.0-33.0 N MEAN CELL HGB CONCETRATION (test code = MCHC) 33.0 gram/dL 33.0-36. 0 N RED CELL DISTRIBUTION WIDTH (test code = RDW) 12.9 % 11.6-16. 2 N RED CELL DISTRIBUTION WIDTH SD (test code = RDW-SD) 39.7 fL 37 .0-51.0 N PLATELET COUNT (test code = PLT) 285 K/mm3 150-450 N MEAN PLATELET VOLUME (test code = MPV) 10.0 fL 6.7-11.0 N IMMATURE GRANULOCYTE % (test code = IG%) 0.6 % 0.0-5.0 N NUCLEATED RBC % (test code = NRBC%) 0.0 % 0-0 N NEUTROPHIL # (test code = NT#) 7.48 K/mm3 1.8-7.7 N IMMATURE GRANULOCYTE # (test code = IG#) 0.06 x10 3/uL 0-0.03 H LYMPHOCYTE # (test code = LY#) 0.92 K/mm3 1.0-5.0 L MONOCYTE # (test code = MO#) 0.96 K/mm3 0-0.8 H EOSINOPHIL # (test code = EO#) 0.04 K/mm3 0.0-0.5 N BASOPHIL # (test code = BA#) 0.01 K/mm3 0.0-0.2 N NUCLEATED RBC # (test code = NRBC#) 0.00 K/mm3 0.0-0.1 N MANUAL DIFF REQUIRED (test code = MDIFF) YES STAIN ACCEPTABILITY (test code = STN ACCEPTABLE) TOTAL CELLS COUNTED (test code = TCC) #CELLS SEGMENTED NEUTROPHILS (test code = SEG) % 39-69 LYMPHOCYTE (test code = LYMPH) % 25-55 MONOCYTE (test code = MON) % 0-10 MORPHOLOGY COMMENT (test code = MOC) PLATELET ESTIMATE (test code = PLTEST) PLATELET MORPHOLOGY (test code = PLTMORPH) - XR CHEST 1 [id number] 14:13:00 FAX: Anabel Main [phone] [place]: St: PRE FAX: Y Wai Boudreaux [phone] Name: GEOFF ALVARADO [facility] : 1960 Age/S: 59/M [address] [facility] Unit #: [id number] Loc: [place] [address] Phys: Anabel Agudelo MD Acct: [id number] Dis Date: Status: PRE ER PHONE #: [phone] Exam Date: 12/18/2019 1409 FAX #: [phone] Reason: sob EXAMS: CPT CODE: [id number] XR CHEST 1 V 01530 HISTORY: Shortness of breath. COMPARISON: None available. Location: [facility]. No acute infiltrates, effusion or congestion is noted. COPD. The cardiac and mediastinal silhouette are within normal limits. IMPRESSION: No acute infiltrates, effusion or congestion. COPD. at 1413 Reported and signed by: Thong Garcia M.D. CC: Anabel Agudelo MD; Wai Boudreaux Technologist: RT LYNDON(Kristin) Trnscrd Date/Time/By: 12/18/2019 (1413) : By: [email or web address] Orig Print D/T: S: 12/18/2019 (9349) PAGE 1 Signed Report CBC W/MANUAL DIFF 2019-12-18 14:09:00* Test Item Value Reference Range Interpretation Comments WHITE BLOOD CELL (test code = WBC) 9.5 K/mm3 4.5-12.5 N RED BLOOD CELL (test code = RBC) 5.16 mill/mm3 4.0-5.8 N HEMOGLOBIN (test code = HGB) 14.4 gram/dL 13.0-17.5 N HEMATOCRIT (test code = HCT) 43.7 % 42.0-52.0 N MEAN CELL VOLUME (test code = MCV) 84.7 fL 80-98 N MEAN CELL HGB (test code = MCH) 27.9 picogram 27.0-33.0 N MEAN CELL HGB CONCETRATION (test code = MCHC) 33.0 gram/dL 33.0-36. 0 N RED CELL DISTRIBUTION WIDTH (test code = RDW) 12.9 % 11.6-16. 2 N RED CELL DISTRIBUTION WIDTH SD (test code = RDW-SD) 39.7 fL 37 .0-51.0 N PLATELET COUNT (test code = PLT) 285 K/mm3 150-450 N MEAN PLATELET VOLUME (test code = MPV) 10.0 fL 6.7-11.0 N IMMATURE GRANULOCYTE % (test code = IG%) 0.6 % 0.0-5.0 N NUCLEATED RBC % (test code = NRBC%) 0.0 % 0-0 N NEUTROPHIL # (test code = NT#) 7.48 K/mm3 1.8-7.7 N IMMATURE GRANULOCYTE # (test code = IG#) 0.06 x10 3/uL 0-0.03 H LYMPHOCYTE # (test code = LY#) 0.92 K/mm3 1.0-5.0 L MONOCYTE # (test code = MO#) 0.96 K/mm3 0-0.8 H EOSINOPHIL # (test code = EO#) 0.04 K/mm3 0.0-0.5 N BASOPHIL # (test code = BA#) 0.01 K/mm3 0.0-0.2 N NUCLEATED RBC # (test code = NRBC#) 0.00 K/mm3 0.0-0.1 N MANUAL DIFF REQUIRED (test code = MDIFF) YES STAIN ACCEPTABILITY (test code = STN ACCEPTABLE) TOTAL CELLS COUNTED (test code = TCC) #CELLS SEGMENTED NEUTROPHILS (test code = SEG) % 39-69 LYMPHOCYTE (test code = LYMPH) % 25-55 MONOCYTE (test code = MON) % 0-10 EOSINOPHIL (test code = EOS) % 0.0-5.0 CABOT RINGS (test code = CAB) MORPHOLOGY COMMENT (test code = MOC) PLATELET ESTIMATE (test code = PLTEST) PLATELET MORPHOLOGY (test code = PLTMORPH) CBC W/MANUAL [id number] 14:09:00* Test Item Value Reference Range Interpretation Comments WHITE BLOOD CELL (test code = WBC) 9.5 K/mm3 4.5-12.5 N RED BLOOD CELL (test code = RBC) 5.16 mill/mm3 4.0-5.8 N HEMOGLOBIN (test code = HGB) 14.4 gram/dL 13.0-17.5 N HEMATOCRIT (test code = HCT) 43.7 % 42.0-52.0 N MEAN CELL VOLUME (test code = MCV) 84.7 fL 80-98 N MEAN CELL HGB (test code = MCH) 27.9 picogram 27.0-33.0 N MEAN CELL HGB CONCETRATION (test code = MCHC) 33.0 gram/dL 33.0-36. 0 N RED CELL DISTRIBUTION WIDTH (test code = RDW) 12.9 % 11.6-16. 2 N RED CELL DISTRIBUTION WIDTH SD (test code = RDW-SD) 39.7 fL 37 .0-51.0 N PLATELET COUNT (test code = PLT) 285 K/mm3 150-450 N MEAN PLATELET VOLUME (test code = MPV) 10.0 fL 6.7-11.0 N IMMATURE GRANULOCYTE % (test code = IG%) 0.6 % 0.0-5.0 N NUCLEATED RBC % (test code = NRBC%) 0.0 % 0-0 N NEUTROPHIL # (test code = NT#) 7.48 K/mm3 1.8-7.7 N IMMATURE GRANULOCYTE # (test code = IG#) 0.06 x10 3/uL 0-0.03 H LYMPHOCYTE # (test code = LY#) 0.92 K/mm3 1.0-5.0 L MONOCYTE # (test code = MO#) 0.96 K/mm3 0-0.8 H EOSINOPHIL # (test code = EO#) 0.04 K/mm3 0.0-0.5 N BASOPHIL # (test code = BA#) 0.01 K/mm3 0.0-0.2 N NUCLEATED RBC # (test code = NRBC#) 0.00 K/mm3 0.0-0.1 N MANUAL DIFF REQUIRED (test code = MDIFF) YES STAIN ACCEPTABILITY (test code = STN ACCEPTABLE) TOTAL CELLS COUNTED (test code = TCC) #CELLS SEGMENTED NEUTROPHILS (test code = SEG) % 39-69 LYMPHOCYTE (test code = LYMPH) % 25-55 MONOCYTE (test code = MON) % 0-10 EOSINOPHIL (test code = EOS) % 0.0-5.0 MORPHOLOGY COMMENT (test code = MOC) PLATELET ESTIMATE (test code = PLTEST) PLATELET MORPHOLOGY (test code = PLTMORPH) CBC W/AUTO [id number] 14:08:00* Test Item Value Reference Range Interpretation Comments WHITE BLOOD CELL (test code = WBC) K/mm3 4.5-12.5 RED BLOOD CELL (test code = RBC) mill/mm3 4.0-5.8 HEMOGLOBIN (test code = HGB) 14.4 gram/dL 13.0-17.5 N HEMATOCRIT (test code = HCT) 43.7 % 42.0-52.0 N MEAN CELL VOLUME (test code = MCV) fL 80-98 MEAN CELL HGB (test code = MCH) picogram 27.0-33.0 MEAN CELL HGB CONCETRATION (test code = MCHC) gram/dL 33.0-36. 0 RED CELL DISTRIBUTION WIDTH (test code = RDW) % 11.6-16. 2 RED CELL DISTRIBUTION WIDTH SD (test code = RDW-SD) fL 37 .0-51.0 PLATELET COUNT (test code = PLT) K/mm3 150-450 MEAN PLATELET VOLUME (test code = MPV) fL 6.7-11.0 NEUTROPHIL % (test code = NT%) % 39.0-69.0 IMMATURE GRANULOCYTE % (test code = IG%) % 0.0-5.0 LYMPHOCYTE % (test code = LY%) % 25.0-55.0 MONOCYTE % (test code = MO%) % 0.0-10.0 EOSINOPHIL % (test code = EO%) % 0.0-5.0 BASOPHIL % (test code = BA%) % 0.0-1.0 NEUTROPHIL # (test code = NT#) K/mm3 1.8-7.7 LYMPHOCYTE # (test code = LY#) K/mm3 1.0-5.0 MONOCYTE # (test code = MO#) K/mm3 0-0.8 EOSINOPHIL # (test code = EO#) K/mm3 0.0-0.5 BASOPHIL # (test code = BA#) K/mm3 0.0-0.2 CBC W/MANUAL [id number] 14:08:00* Test Item Value Reference Range Interpretation Comments WHITE BLOOD CELL (test code = WBC) 9.5 K/mm3 4.5-12.5 N RED BLOOD CELL (test code = RBC) 5.16 mill/mm3 4.0-5.8 N HEMOGLOBIN (test code = HGB) 14.4 gram/dL 13.0-17.5 N HEMATOCRIT (test code = HCT) 43.7 % 42.0-52.0 N MEAN CELL VOLUME (test code = MCV) 84.7 fL 80-98 N MEAN CELL HGB (test code = MCH) 27.9 picogram 27.0-33.0 N MEAN CELL HGB CONCETRATION (test code = MCHC) 33.0 gram/dL 33.0-36. 0 N RED CELL DISTRIBUTION WIDTH (test code = RDW) 12.9 % 11.6-16. 2 N RED CELL DISTRIBUTION WIDTH SD (test code = RDW-SD) 39.7 fL 37 .0-51.0 N PLATELET COUNT (test code = PLT) 285 K/mm3 150-450 N MEAN PLATELET VOLUME (test code = MPV) 10.0 fL 6.7-11.0 N IMMATURE GRANULOCYTE % (test code = IG%) 0.6 % 0.0-5.0 N NUCLEATED RBC % (test code = NRBC%) 0.0 % 0-0 N NEUTROPHIL # (test code = NT#) 7.48 K/mm3 1.8-7.7 N IMMATURE GRANULOCYTE # (test code = IG#) 0.06 x10 3/uL 0-0.03 H LYMPHOCYTE # (test code = LY#) 0.92 K/mm3 1.0-5.0 L MONOCYTE # (test code = MO#) 0.96 K/mm3 0-0.8 H EOSINOPHIL # (test code = EO#) 0.04 K/mm3 0.0-0.5 N BASOPHIL # (test code = BA#) 0.01 K/mm3 0.0-0.2 N NUCLEATED RBC # (test code = NRBC#) 0.00 K/mm3 0.0-0.1 N MANUAL DIFF REQUIRED (test code = MDIFF) YES STAIN ACCEPTABILITY (test code = STN ACCEPTABLE) TOTAL CELLS COUNTED (test code = TCC) #CELLS SEGMENTED NEUTROPHILS (test code = SEG) % 39-69 LYMPHOCYTE (test code = LYMPH) % 25-55 MONOCYTE (test code = MON) % 0-10 EOSINOPHIL (test code = EOS) % 0.0-5.0 CABOT RINGS (test code = CAB) MORPHOLOGY COMMENT (test code = MOC) PLATELET ESTIMATE (test code = PLTEST) PLATELET MORPHOLOGY (test code = PLTMORPH) CBC W/MANUAL [id number] 14:08:00* Test Item Value Reference Range Interpretation Comments WHITE BLOOD CELL (test code = WBC) 9.5 K/mm3 4.5-12.5 N RED BLOOD CELL (test code = RBC) 5.16 mill/mm3 4.0-5.8 N HEMOGLOBIN (test code = HGB) 14.4 gram/dL 13.0-17.5 N HEMATOCRIT (test code = HCT) 43.7 % 42.0-52.0 N MEAN CELL VOLUME (test code = MCV) 84.7 fL 80-98 N MEAN CELL HGB (test code = MCH) 27.9 picogram 27.0-33.0 N MEAN CELL HGB CONCETRATION (test code = MCHC) 33.0 gram/dL 33.0-36. 0 N RED CELL DISTRIBUTION WIDTH (test code = RDW) 12.9 % 11.6-16. 2 N RED CELL DISTRIBUTION WIDTH SD (test code = RDW-SD) 39.7 fL 37 .0-51.0 N PLATELET COUNT (test code = PLT) 285 K/mm3 150-450 N MEAN PLATELET VOLUME (test code = MPV) 10.0 fL 6.7-11.0 N IMMATURE GRANULOCYTE % (test code = IG%) 0.6 % 0.0-5.0 N NUCLEATED RBC % (test code = NRBC%) 0.0 % 0-0 N NEUTROPHIL # (test code = NT#) 7.48 K/mm3 1.8-7.7 N IMMATURE GRANULOCYTE # (test code = IG#) 0.06 x10 3/uL 0-0.03 H LYMPHOCYTE # (test code = LY#) 0.92 K/mm3 1.0-5.0 L MONOCYTE # (test code = MO#) 0.96 K/mm3 0-0.8 H EOSINOPHIL # (test code = EO#) 0.04 K/mm3 0.0-0.5 N BASOPHIL # (test code = BA#) 0.01 K/mm3 0.0-0.2 N NUCLEATED RBC # (test code = NRBC#) 0.00 K/mm3 0.0-0.1 N MANUAL DIFF REQUIRED (test code = MDIFF) YES STAIN ACCEPTABILITY (test code = STN ACCEPTABLE) TOTAL CELLS COUNTED (test code = TCC) #CELLS SEGMENTED NEUTROPHILS (test code = SEG) % 39-69 LYMPHOCYTE (test code = LYMPH) % 25-55 MONOCYTE (test code = MON) % 0-10 EOSINOPHIL (test code = EOS) % 0.0-5.0 CABOT RINGS (test code = CAB) MORPHOLOGY COMMENT (test code = MOC) PLATELET ESTIMATE (test code = PLTEST) PLATELET MORPHOLOGY (test code = PLTMORPH) MRI FOOT LEFT [id number] 10:00:00 [place] [address] Patient Name: GEOFF ALVARADO MR #: [id number] : 1960 Age/Sex: 58/M Req #: [id number] Adm Physician: Ordered by: Tmaara ARELLANO DPTex Report #: [id number] Location: MRI Room/Bed: Procedure: [id number] MRI/MRI FOOT LEFT WO Exam Date: Exam Time: REPORT STATUS: Signed MRI of the left foot witho ut contrast. History: Osteomyelitis. Nonhealing laceration at the hindfoot. Foot pain. Decreased range of motion. History of prior surgery. Techniqu e: Multiplanar multisequence MRI of the left hindfoot without contrast Com parison: None Findings: Abnormal skin thickening with laceration and ar tifact at the inferior medial heel at the level of the posterior calcaneus as seen on sagittal image 12. No adjacent well-formed drainable fluid collection/ abscess is seen. There is a moderate amount of bone marrow edema in the philosophy lecturer ior calcaneus worrisome for osteomyelitis. Metallic artifact from prior a nkle surgery obscures fine detail. No acute fracture, dislocation or eviden ce of avascular necrosis. Scattered degenerative change. Diffuse muscle a trophy. No ligamentous or tendon tear is seen. The visualized neurovas cular bundles are intact. Impression: Abnormal skin thickening with lacer ation and artifact at the inferior medial heel at the level of the posterior c alcaneus as seen on sagittal image 12. No adjacent well-formed drainable fluid collection/abscess is seen. There is a moderate amount of bone marrow edema i n the posterior calcaneus worrisome for osteomyelitis. Signed by: Dr. Serjio Weiner M.D. on 12/10/2019 10:05 AM Dictated By: SERJIO WEINER MD, MD 1005 Transcribed By: JOSE on 12/10/19 1005 COPY TO: Tamara ARELLANO [place] [[facility]] LIPID [id number] 15:10:00* Test Item Value Reference Range Interpretation Comments CHOLESTEROL, TOTAL; Normal (test code = 3-3) 165 mg/dl <200 N HDL CHOLESTEROL; Normal (test code = 5-9) 56 mg/dl >40 N TRIGLYCERIDES; Normal (test code = 2571-8) 81 mg/dl <150 N LDL-CHOLESTEROL; Normal (test code = 23669-8) 92 {MG/DL SHAUN} N Reference range: <100 Desirable range <100 mg/dL for primary prevention; <70 mg/dL for patients with CHD or diabetic patients with > or = 2 CHD risk factors. LDL-C is now calculated using the Erik-Naveen calculation, which is a validated novel method providing better accuracy than the Friedewald equation in the estimation of LDL-C. Erik ZIMMERMAN et al. MICHA. 2013;310(19): 6754-5703 (http ://education.Caliopa.SimpleMist/faq/IKL781) CHOL/HDLC RATIO (test code = CHOL/HDLC RATIO) 2.9 {CALC} <5.0 N NON HDL CHOLESTEROL (test code = NON HDL CHOLESTEROL) 109 {MG/DL C AL} <130 N For patients with diabetes plus 1 major ASCVD risk factor, treating to a non-HDL-C goal of <100 mg/dL (LDL-C of <70 mg/dL) is considered a therapeutic option. [facility]] CMP [id number] 15:10:00* Test Item Value Reference Range Interpretation Comments GLUCOSE; Normal (test code = 1547-9) 79 mg/dl 65-99 N Fasting reference interval UREA NITROGEN (BUN) (test code = UREA NITROGEN (BUN)) 19 mg/dl 7-25 N CREATININE (test code = CREATININE) 1.15 mg/dl 0.70-1.33 N For patients >49 years of age, the reference limitfor Creatinine is approximately 13% higher for peopleidentified as -Portuguese. eGFR NON- (test code = eGFR NON-CHRIS N TAIWANESE) 70 {ML/MIN/1.7} > OR = 60 N eGFR (test code = eGFR ) 81 {ML/MIN/1.7} > OR = 60 N BUN/CREATININE RATIO (test code = BUN/CREATININE RATIO) NOT APPLICA BLE 6-22 SODIUM (test code = SODIUM) 139 mmol/L 135-146 N POTASSIUM (test code = POTASSIUM) 4.4 mmol/L 3.5-5.3 N CHLORIDE (test code = CHLORIDE) 104 mmol/L 98-110 N CARBON DIOXIDE (test code = CARBON DIOXIDE) 27 mmol/L 20-31 N CALCIUM (test code = CALCIUM) 9.5 mg/dl 8.6-10.3 N PROTEIN, TOTAL (test code = PROTEIN, TOTAL) 6.7 g/dl 6.1-8.1 N ALBUMIN (test code = ALBUMIN) 4.2 g/dl 3.6-5.1 N GLOBULIN (test code = GLOBULIN) 2.5 {G/DL CALC} 1.9-3.7 N ALBUMIN/GLOBULIN RATIO (test code = ALBUMIN/GLOBULIN RATIO) 1.7 {CALC} 1.0-2.5 N BILIRUBIN, TOTAL; Normal (test code = 14420-1) 0.4 mg/dl 0.2-1.2 N ALKALINE PHSPHATASE (test code = ALKALINE PHSPHATASE) 60 u/l 40-115 N AST; Normal (test code = 1916-6) 11 u/l 10-35 N ALT; Normal (test code = 1742-6) 12 u/l 9-46 N [facility]] CBC (INCLUDES DIFF/PLT)2017-12-06 15:10:00* Test Item Value Reference Range Interpretation Comments WHITE BLOOD CELL COUNT (test code = WHITE BLOOD CELL COUNT) 6.4 {Thousand/u} 3.8-10.8 N RED BLOOD CELL COUNT (test code = RED BLOOD CELL COUNT) 5.14 {Million/uL} 4.20-5.80 N HEMOGLOBIN; Normal (test code = 14744-7) 14.6 g/dl 13.2-17.1 N HEMATOCRIT; Normal (test code = 4544-3) 43.8 % 38.5-50.0 N MCV; Normal (test code = 787-2) 85.2 fL 80.0-100.0 N MCHC; Normal (test code = 59742-6) 33.3 g/dl 32.0-36.0 N RDW; Normal (test code = 788-0) 13.1 % 11.0-15.0 N PLATELET COUNT; Normal (test code = 777-3) 234 {Thousand/u} 140-400 N MPV; Normal (test code = 22789-2) 10.5 fL 7.5-12.5 N ABSOLUTE NEUTROPHILS (test code = ABSOLUTE NEUTROPHILS) 4102 {cells/uL} 0274-7222 N ABSOLUTE LYMPHOCYTES (test code = ABSOLUTE LYMPHOCYTES) 1370 {cells/uL} 850-3900 N ABSOLUTE MONOCYTES (test code = ABSOLUTE MONOCYTES) 666 {cells/uL} 200-950 N ABSOLUTE EOSINOPHILS (test code = ABSOLUTE EOSINOPHILS) 230 {cells/ uL} 15-500 N ABSOLUTE BASOPHILS (test code = ABSOLUTE BASOPHILS) 32 {cells/uL} 0 -200 N NEUTROPHILS (test code = NEUTROPHILS) 64.1 % N LYMPHOCYTES (test code = LYMPHOCYTES) 21.4 % N MONOCYTES; Normal (test code = 60175-3) 10.4 % N EOSINOPHILS; Normal (test code = 96155-3) 3.6 % N BASOPHILS; Normal (test code = 54455-8) 0.5 % N [facility]
--- NOTE | 2020-06-02 12:37 | Emergency Department Note ---
History of Present Illnes History of Present Illness Chief Complaint: Neurological History of Present Illness This is a 59 year old male Chief Complaint Comment PT C/O SHARP SHOO TING PAIN THAT STARTS IN BACK OF LEFT SIDE OF HEAD AND SHOOTS FORWARD INTO EYES AND NOSTRILS. PT REPORTS PAIN BEING LIKE A "SHOCK". PT STATES PAIN STARTED AROUND 0800. PT DENIES ANY FALLS OR TRAUMA. PT DENIES TAKING ANY BLOOD THINNERS. Historian: Patient Arrival Mode: Car Additional Treatment LUNCHROOM OPERATOR: TYLENOL #4 3 HOURS LUNCHROOM OPERATOR Device Sales Consultant Required: No Onset (how long ago): hour(s) Location: Head Quality: Shock-like Radiation: Reports non-radiation Severity: moderate Onset quality: sudden Duration (how long): hour(s) Timing of current episode: constant Progression: unchanged Chronicity: new Context: Denies recent illness, Denies recent surgery Relieving factors: none Exacerbating factors: none Associated symptoms: Reports denies other symptoms Treatments prior to arrival: none Past Medical/Family History Physician Review I have reviewed the patient's past medical and family history. Any updates have been documented here. Past Medical History Recent Fever: No Clinical Suspicion of Infectio: No New/Unexplained Change in Ment: No Past Medical History: Hypertension, Anxiety, Depression Other Medical History: OSTEOMYELITIS Past Surgical History: Back Surgery Other Surgery: R knee surgery,L4 spinal surgery. Other Last Tetanus: UTD Review of Systems Review of Systems Constitutional: Reports no symptoms EENTM: Reports no symptoms Cardiovascular: Reports no symptoms Respiratory: Reports no symptoms Gastrointestinal: Reports no symptoms Genitourinary: Reports no symptoms Musculoskeletal: Reports no symptoms Integumentary: Reports no symptoms Neurological: Reports as per HPI, Reports headache Psychological: Reports no symptoms Endocrine: Reports no symptoms Hematological/Lymphatic: Reports no symptoms Physical Exam Related Data Allergies: Coded Allergies: No Known Drug Allergies (Verified Allergy, Mild, 04/21/20) Triage Vital Signs Vital Signs Date Time Temp Pulse Resp B/P (MAP) Pulse Ox O2 Delivery O2 Flow Rate FiO2 06/02/20 11:52 98.2 98 14 176/103 98 Room Air Vital signs reviewed: Yes Physical Exam CONSTITUTIONAL Constitutional: Present well-developed, Present well-nourished HENT HENT: Present normocephalic, Present atraumatic, Present oropharynx clear/moist, Present nose normal HENT L/R: Present left ext ear normal, Present right ext ear normal EYES Eyes: Reports PERRL, Reports conjunctivae normal NECK Neck: Present ROM normal PULMONARY Pulmonary: Present effort normal, Present breath sounds normal CARDIOVASCULAR Cardiovascular: Present regular rhythm, Present heart sounds normal, Present capillary refill normal, Present normal rate GASTROINTESTINAL Abdominal: Present soft, Present nontender, Present bowel sounds normal GENITOURINARY Genitourinary: Present exam deferred SKIN Skin: Present warm, Present dry MUSCULOSKELETAL Musculoskeletal: Present ROM normal NEUROLOGICAL Neurological: Present alert, Present oriented x 3, Present no gross motor or sensory deficits; Absent cranial nerve deficit, Absent sensory deficit, Absent weakness PSYCHOLOGICAL Psychological: Present mood/affect normal, Present judgement normal Assessment & Plan Medical Decision Making MDM 59-year-old male presents for recurrent left frontal/occipital/intraorbital headache. He additionally has tearing of the left eye when this occurs. Initial differential includes cluster headache versus migraine versus generalized headache. Cranial nerves II-12 are intact, no weakness, no focal neurologic findings. Do not suspect intracranial hemorrhage or emergent pathology. He was trialed on nasal cannula which did not work but sphenopalatine lidocaine administration relieved his headache. I discussed likely diagnosis of cluster headache with patient and referral was placed for neurology. Patient states agreement to plan and he is appropriate for discharge. Reassessment Reassessment time: 14:56 Reassessment Headache resolved Assessment & Plan Final Impression: (1) Cluster headache Depart Disposition: HOME, SELF-CARE Last Vital Signs Date Time Temp Pulse Resp B/P (MAP) Pulse Ox O2 Delivery O2 Flow Rate FiO2 06/02/20 11:52 98.2 98 14 176/103 98 Room Air Home Meds Reported Medications Diazepam (DIAZEPAM) 10 Mg Tablet, 1 TAB PO HS 04/21/20 Acetaminophen With Codeine (ACETAMINOPHEN-COD #4 TABLET) 1 Each Tablet, 1 TAB PO BID 04/21/20 Vancomycin Hcl (VANCOMYCIN HCL) 5 Gm Vial 04/21/20 [Flonase] No Conflict Check 10/14/16 Metoprolol Succinate (METOPROLOL SUCCINATE) 50 Mg Tab.er.24h, 100 MG PO BID, MG 04/27/16 Ibuprofen/Famotidine (DUEXIS 800-26.6 MG TABLET) 1 Each Tablet, 1 TAB PO BID 04/27/16 MARTIN PARR MD Jun 02, 2020 12:37
[2020-06-02] MEDS ORDERED: LIDOCAINE HCL 1% 2 ML AMP ONE (13:04)
[2020-06-02] MEDS ORDERED: LIDOCAINE HCL 1% 2 ML AMP INJ ONE (13:15)
== END 2020-06-02 15:07 | disposition home or self-care (01) ==
LOC: ER 12:29
DX: G44.009 Cluster headache syndrome, unspecified, not intractable (principal); I10 Essential (primary) hypertension; F41.9 Anxiety disorder, unspecified; F32.9 Major depressive disorder, single episode, unspecified
CPT/HCPCS: 99282; J2001

== ENCOUNTER 2020-07-28 10:04 | Emergency (ER) | payer MEDICARE ==
[~2020-07-28] VITALS: Ht 175.3 cm; Wt 72.6 kg
[2020-07-28] MEDS ORDERED: LIDOCAINE HCL 4% 50 ML BTL TOP ONE (10:45)
[2020-07-28] MEDS ORDERED: KETOROLAC TROMETHAMINE 30 MG/ML VIAL IV STA (12:25)
[2020-07-28] MEDS ORDERED: SODIUM CHLORIDE 0.9% 1000ML 1,000 ML IV SCH (12:30)
[2020-07-28] MEDS ORDERED: DIPHENHYDRAMINE HCL 25 MG CAP PO ONE (12:30)
[2020-07-28] MEDS ORDERED: METOCLOPRAMIDE HCL 10 MG/2ML VIAL IV ONE (12:30)
== END 2020-07-28 13:57 | disposition home or self-care (01) ==
LOC: ER 10:36
DX: R51.9 Headache, unspecified (principal); I10 Essential (primary) hypertension; F41.9 Anxiety disorder, unspecified; F32.9 Major depressive disorder, single episode, unspecified; M54.9 Dorsalgia, unspecified; G89.29 Other chronic pain
CPT/HCPCS: 99283; J1885; J2765